=== PATIENT | female | born 1950 | race Caucasian/White ===

== ENCOUNTER → 2017-08-02 09:36 | Outpatient (CLI) | payer MEDICARE, OTHER, SELFPAY ==
--- NOTE | 2017-08-02 09:36 | DT_ITS ---
This patient was seen during an EMR downtime July 26, 2017 - August 02, 2017. This patient may have a combination of paper and electronic documentation or all paper documentation. All documentation is viewable within the e-chart portion of [facility] for each patient visit.
[2017-08-02 11:14] LABS: Cholesterol 193 mg/dL (200); Glucose 85 mg/dL (74-106); High Density Lipoprotein 42 mg/dL; Thyroid Stim Hormone (TSH) 1.95 uIU/mL (0.358-3.74); Triglycerides 127 mg/dL; Very Low Density Lipoprotein 25 mg/dL (5-40)
== END ==
PROVIDERS: Visit Provider Obstetrics & Gynecology
DX: C54.1 Malignant neoplasm of endometrium (principal); C56.9 Malignant neoplasm of unspecified ovary; Z13.9 Encounter for screening, unspecified
CPT/HCPCS: 36415; 80061; 82947; 84443; 86304

== ENCOUNTER → 2017-08-27 12:44 | Outpatient (CLI) | payer MEDICARE, OTHER, SELFPAY ==
--- NOTE | 2017-08-27 12:46 | BI_ITS ---
MAMMOGRAPHY - BILATERAL SCREENING REASON FOR EXAM: Female, 67 years old. Routine annual screening examination. PERTINENT HISTORY: Non-contributory. TECHNIQUE: Digital bilateral breast ynes (3D mammographic acquisition) in the CC and MLO projections. 2-D mediolateral oblique (MLO) and craniocaudad (CC) views of both breasts were obtained. CAD: Full Field Digital Mammography with Computer Added Detection was performed. COMPARISON: Comparison is made with prior study dated August 20, 2016 and August 19, 2015. FINDINGS: Breast Composition: There are scattered areas of fibroglandular density. There are no dominant masses or suspicious calcifications. No other significant abnormalities are identified. There has been no significant change since the prior study. BI/SCREENING MAMM (CAD), BILAT IMPRESSION: Stable bilateral screening mammogram. Yearly follow-up mammogram recommended. (A) ASSESSMENT CATEGORY: BIRADS Category 1: Negative. A letter regarding these results will be sent to the patient by the facility within 30 days. Approximately 10% of breast cancers are not detected by mammography. A normal mammogram should not delay biopsy of a clinically suspicious abnormality. [id number] Electronically Signed: Dany Riggs MD at 14:21 EDT Tel [phone], Service support ,
== END ==
PROVIDERS: Visit Provider Obstetrics & Gynecology
DX: Z12.31 Encounter for screening mammogram for malignant neoplasm of breast (principal)
CPT/HCPCS: 77063; 77067

== ENCOUNTER → 2018-02-10 09:47 | Outpatient (CLI) | payer MEDICARE, OTHER, SELFPAY ==
[2018-02-11 12:54] LABS: Cancer Antigen 125 18.7 U/mL (0.0-38.1)
== END ==
PROVIDERS: Visit Provider Obstetrics & Gynecology
DX: C54.1 Malignant neoplasm of endometrium (principal); C56.9 Malignant neoplasm of unspecified ovary
CPT/HCPCS: 36415; 86304

== ENCOUNTER → 2018-08-15 | Outpatient (CLI) | payer MEDICARE, OTHER, SELFPAY ==
[2018-08-17 10:45] LABS: Cancer Antigen 125 15.1 U/mL (0.0-38.1)
== END | disposition home or self-care (01) ==
LOC: WOBLAB 10:41
PROVIDERS: Visit Provider Obstetrics & Gynecology
DX: C54.1 Malignant neoplasm of endometrium (principal); C56.9 Malignant neoplasm of unspecified ovary
CPT/HCPCS: 36415; 86304

== ENCOUNTER → 2018-09-05 | Outpatient (CLI) | payer MEDICARE, OTHER, SELFPAY ==
--- NOTE | 2018-09-05 14:22 | BI_ITS ---
MAMMOGRAPHY - BILATERAL SCREENING REASON FOR EXAM: Female, 68 years old. Routine annual screening examination. PERTINENT HISTORY: Non-contributory. TECHNIQUE: Digital bilateral breast huyen (3D mammographic acquisition) in the CC and MLO projections. 2-D mediolateral oblique (MLO) and craniocaudad (CC) views of both breasts were obtained. CAD: Full Field Digital Mammography with Computer Added Detection was performed. COMPARISON: Comparison is made with prior study dated August 27, 2017 and August 20, 2016. FINDINGS: Breast Composition: There are scattered areas of fibroglandular density. There are no dominant masses or suspicious calcifications. No other significant abnormalities are identified. There has been no significant change since the prior study. BI/SCREEN MAMM (CAD) W/HUYEN BILAT IMPRESSION: Stable bilateral screening mammogram. Yearly follow-up mammogram recommended. (A) ASSESSMENT CATEGORY: BIRADS Category 1: Negative. A letter regarding these results will be sent to the patient by the facility within 30 days. Approximately 10% of breast cancers are not detected by mammography. A normal mammogram should not delay biopsy of a clinically suspicious abnormality. [id number] Electronically Signed: Dany Riggs, at 15:24 EDT , Service support ,
== END | disposition home or self-care (01) ==
LOC: OPBI 14:20
PROVIDERS: Referring Provider Obstetrics & Gynecology; Visit Provider Obstetrics & Gynecology
DX: Z12.31 Encounter for screening mammogram for malignant neoplasm of breast (principal)
CPT/HCPCS: 77063; 77067

== ENCOUNTER → 2019-02-20 10:23 | Outpatient (CLI) | payer MEDICARE, OTHER, SELFPAY ==
[2019-02-21 15:50] LABS: Cancer Antigen 125 15.1 U/mL (0.0-38.1)
== END ==
PROVIDERS: Visit Provider Obstetrics & Gynecology
DX: C54.1 Malignant neoplasm of endometrium (principal); C56.9 Malignant neoplasm of unspecified ovary
CPT/HCPCS: 36415; 86304

== ENCOUNTER → 2019-09-19 | Outpatient (CLI) | payer MEDICARE, OTHER, SELFPAY ==
[2019-09-20 15:21] LABS: Cancer Antigen 125 15.5 U/mL (0.0-38.1)
== END | disposition home or self-care (01) ==
LOC: WOBLAB 10:21
PROVIDERS: Visit Provider Obstetrics & Gynecology
DX: C54.1 Malignant neoplasm of endometrium (principal)
CPT/HCPCS: 36415; 86304

== ENCOUNTER → 2019-09-20 | Outpatient (CLI) | payer MEDICARE, OTHER, SELFPAY ==
--- NOTE | 2019-09-20 11:58 | BI_ITS ---
MAMMOGRAPHY - BILATERAL SCREENING REASON FOR EXAM: Female, 69 years old. Routine annual screening examination. PERTINENT HISTORY: Non-contributory. TECHNIQUE: Digital bilateral breast huyen (3D mammographic acquisition) in the CC and MLO projections. 2-D mediolateral oblique (MLO) and craniocaudad (CC) views of both breasts were obtained. CAD: Full Field Digital Mammography with Computer Added Detection was performed. COMPARISON: Comparison is made with prior study dated 09/05/2018 and 08/27/2017. FINDINGS: Breast Composition: There are scattered areas of fibroglandular density. There are no dominant masses or suspicious calcifications. Small bilateral benign appearing axillary lymph nodes No other significant abnormalities are identified. There has been no significant change since the prior study. BI/SCREEN MAMM (CAD) W/HUYEN BILAT IMPRESSION: Stable bilateral screening mammogram. Yearly follow-up mammogram recommended. (A) ASSESSMENT CATEGORY: BIRADS Category 2: Benign. A letter regarding these results will be sent to the patient by the facility within 30 days. Approximately 10% of breast cancers are not detected by mammography. A normal mammogram should not delay biopsy of a clinically suspicious abnormality. [id number] Electronically Signed: Dany Riggs, at 13:18 EDT , Service support ,
== END | disposition home or self-care (01) ==
LOC: OPBI 11:55
PROVIDERS: Referring Provider Obstetrics & Gynecology; Visit Provider Obstetrics & Gynecology
DX: Z12.31 Encounter for screening mammogram for malignant neoplasm of breast (principal)
CPT/HCPCS: 77063; 77067

== ENCOUNTER → 2019-10-27 | Outpatient (CLI) | payer MEDICARE, OTHER, SELFPAY ==
[2019-10-27 10:40] VITALS: BMI 38.7
--- NOTE | 2019-10-27 11:42 | RAD_ITS ---
STUDY: X-RAY - RIGHT KNEE REASON FOR EXAM: Female, 69 years old. STIFF KNEE MORE FREQUENTLY, NKI TECHNIQUE: 4 view(s) of the knee. COMPARISON: None. FINDINGS: Normal visualized distal femur. Normal visualized proximal tibia and fibula. Normal proximal tibiofibular articulation. Normal medial femorotibial compartment. Normal lateral femorotibial compartment. Normal patellofemoral articulation. The soft tissue structures are unremarkable. RAD/Knee 4 or More Views IMPRESSION: Normal x-ray examination of the knee. Electronically Signed: Dany Riggs, at 13:09 EDT , Service support ,
[2019-10-27 12:24] LABS: Absolute Neutrophil Count 3.7 X10^3/uL (2.0-7.7); Basophil# 0.03 X10^3/uL; Basophil% 0.5 % (0-1); Eosinophil# 0.15 X10^3/uL; Eosinophils% 2.5 % (0-5); Hematocrit 44.5 % (37-47); Hemoglobin 14.9 g/dL (12.0-15.0); Lymphocyte % 27.1 % (19-41); Mean Corp Hgb Conc 33.5 g/dL (32-36); Mean Corpuscular Hgb 31.7 pg (27.0-32.0); Mean Corpuscular Volume 94.7 fL (81-99); Mean Platelet Vol. 8.9 fl (6.2-12.0); Monocyte% 6.8 % (0-10); NRBC Flagged by Analyzer 0 % (0-5); Neutrophil % 62.8 % (47-70); Platelet Count 272 K/mm3 (150-450); RBC Distribution Width CV 11.9 % (11.6-14.6); RBC Distribution Width SD 41.1 fl (35.1-43.9); White Blood Count 5.9 K/mm3 (4.4-11.0)
[2019-10-27 12:27] LABS: AST(SGOT) 22 U/L (15-37); Alanine Aminotransfer ALT/SGPT 23 U/L (13-56); Alkaline Phosphatase 101 U/L (45-117); Anion Gap 5 (5-15); BUN 22 mg/dL (7-18); BUN/Creat Ratio 22.2 RATIO (10-20); Calcium,Total 9.1 mg/dL (8.5-10.1); Chloride 110 mmol/L (98-107); Cholesterol 235 mg/dL (200); Creatinine, Serum 0.99 mg/dL (0.55-1.02); EST Glomerular Filtration Rate 59 mL/min (>60); Est Glom Filt Rate - Afr Amer 71 mL/min (>60); Glucose 91 mg/dL (74-106); High Density Lipoprotein 45 mg/dL; Potassium 4.5 mmol/L (3.5-5.1); Sodium Level 144 mmol/L (136-145); Triglycerides 101 mg/dL; Very Low Density Lipoprotein 20 mg/dL (5-40)
== END | disposition home or self-care (01) ==
PROVIDERS: PCP Internal Medicine; Referring Provider Internal Medicine; Visit Provider Internal Medicine
DX: M19.90 Unspecified osteoarthritis, unspecified site (principal); M25.561 Pain in right knee; E66.9 Obesity, unspecified
CPT/HCPCS: 36415; 73564; 80053; 80061; 85025

== ENCOUNTER → 2020-10-02 10:44 | Outpatient (CLI) | payer MEDICARE, OTHER, SELFPAY ==
[2019-10-27 10:40] VITALS: BMI 38.7
[2020-10-03 07:50] LABS: Cancer Antigen 125 16.4 U/mL (0.0-38.1)
== END ==
PROVIDERS: PCP Internal Medicine; Visit Provider Obstetrics & Gynecology
DX: C54.1 Malignant neoplasm of endometrium (principal); C56.9 Malignant neoplasm of unspecified ovary
CPT/HCPCS: 36415; 86304

== ENCOUNTER → 2020-10-04 12:27 | Outpatient (CLI) | payer MEDICARE, OTHER, SELFPAY ==
[2019-10-27 10:40] VITALS: BMI 38.7
--- NOTE | 2020-10-04 12:29 | BI_ITS ---
MAMMOGRAPHY - BILATERAL SCREENING REASON FOR EXAM: Female, 70 years old. Routine annual screening examination. PERTINENT HISTORY: Non-contributory. TECHNIQUE: Digital bilateral breast huyen (3D mammographic acquisition) in the CC and MLO projections. 2-D mediolateral oblique (MLO) and craniocaudad (CC) views of both breasts were obtained. CAD: Full Field Digital Mammography with Computer Added Detection was performed. COMPARISON: Comparison is made with prior study of 09/20/2019 and 09/05/2018. FINDINGS: Breast Composition: There are scattered areas of fibroglandular density. There are no dominant masses or suspicious calcifications. No other significant abnormalities are identified. There has been no significant change since the prior study. BI/SCRN MAMM (CAD)W/HUYEN BILAT IMPRESSION: Stable bilateral screening mammogram. Yearly follow-up mammogram recommended. (A) ASSESSMENT CATEGORY: BIRADS Category 1: Negative. A letter regarding these results will be sent to the patient by the facility within 30 days. Approximately 10% of breast cancers are not detected by mammography. A normal mammogram should not delay biopsy of a clinically suspicious abnormality. [id number] Electronically Signed: Dany Riggs MD at 13:36 EDT , Service support ,
== END ==
PROVIDERS: PCP Internal Medicine; Referring Provider Obstetrics & Gynecology; Visit Provider Obstetrics & Gynecology
DX: Z12.31 Encounter for screening mammogram for malignant neoplasm of breast (principal)
CPT/HCPCS: 77063; 77067

== ENCOUNTER 2021-03-17 10:44 | Outpatient (CLI) | payer MEDICARE, OTHER, SELFPAY ==
[2021-03-17 12:45] LABS: ALB/GLOB Ratio 0.9 RATIO (0.9-2.4); AST(SGOT) 21 U/L (15-37); Alanine Aminotransfer ALT/SGPT 25 U/L (13-56); Alkaline Phosphatase 112 U/L (45-117); Anion Gap 6 (5-15); BUN 13 mg/dL (7-18); BUN/Creat Ratio 10.4 RATIO (10-20); Calcium,Total 9.3 mg/dL (8.5-10.1); Chloride 104 mmol/L (98-107); Creatinine, Serum 1.25 mg/dL (0.55-1.02); EST Glomerular Filtration Rate 45 mL/min (>60); Est Glom Filt Rate - Afr Amer 55 mL/min (>60); Globulin 4.6 g/dL (2.2-4.2); Glucose 129 mg/dL (74-106); Potassium 4.7 mmol/L (3.5-5.1); Protein, Total 8.6 g/dL (6.4-8.2); Sodium Level 137 mmol/L (136-145)
[2021-03-17 12:48] LABS: Absolute Lymphocyte Count 1.53 X10^3/uL (0.83-4.51); Absolute Neutrophil Count 11.1 X10^3/uL (2.0-7.7); Basophil# 0.05 X10^3/uL; Basophil% 0.4 % (0-1); Eosinophil# 0.13 X10^3/uL; Eosinophils% 0.9 % (0-5); Hematocrit 49.6 % (37-47); Hemoglobin 16.5 g/dL (12.0-15.0); Lymphocyte # 1.53 X10^3/ul (0.83-4.51); Lymphocyte % 10.9 % (19-41); Mean Corp Hgb Conc 33.3 g/dL (32-36); Mean Corpuscular Hgb 31.3 pg (27.0-32.0); Mean Corpuscular Volume 94.1 fL (81-99); Mean Platelet Vol. 9.2 fl (6.2-12.0); Monocyte# 1.14 X10^3/uL; Monocyte% 8.1 % (0-10); NRBC Flagged by Analyzer 0 % (0-5); Neutrophil # 11.12 X10^3/uL (2.7-7.7); Neutrophil % 79.2 % (47-70); Platelet Count 327 K/mm3 (150-450); RBC Distribution Width SD 41.9 fl (35.1-43.9); Red Blood Count 5.27 M/mm3 (4.2-5.4)
== END 2021-03-17 23:59 | disposition short-term general hospital (02) ==
LOC: BIMLAB 10:45
PROVIDERS: PCP Internal Medicine; Referring Provider Internal Medicine; Visit Provider Internal Medicine
DX: R10.9 Unspecified abdominal pain (principal); R19.4 Change in bowel habit
CPT/HCPCS: 36415; 80053; 85025

== ENCOUNTER 2021-03-18 07:33 | Outpatient (CLI) | payer MEDICARE, OTHER, SELFPAY ==
--- NOTE | 2021-03-18 07:36 | US_ITS ---
STUDY: ABDOMINAL ULTRASOUND REASON FOR EXAM: Female, 70 years old. Abdominal Discomfort TECHNIQUE: Transabdominal ultrasound was performed with real-time and static medellin scale imaging. TECHNICAL QUALITY: Adequate. COMPARISON: None. FINDINGS: Liver: The liver measures 15.9 cm. There is normal echogenicity of the liver. The bile ducts are within normal limits. There is hepatic color flow. The direction of portal flow is hepatopetal. There is no demonstrated mass lesion. Gallbladder: Normal distended gallbladder. The gallbladder wall is thickened and measures 6.4 mm. There is a negative sonographic Littlejohn''s sign. There is pericholecystic fluid. There are multiple echogenic structures within the gallbladder, consistent with multiple gallstones. Sludge is seen within the gallbladder lumen. Common Bile Duct (C.B.D.): The common bile duct measures 5.8 mm. Pancreas: Normal size of the head, body and tail of the pancreas. There is normal echogenicity of the pancreas. There is no demonstrated pancreatic mass or cyst. Spleen: Normal size of the spleen. The spleen measures 9 cm x 4.8 cm x 3.8 cm. Right Kidney: Normal size of the right kidney. The right kidney measures 10.6 cm x 6.1 cm x 4.2 cm. Normal renal cortex. The right cortex measures 1.0 cm. There is no demonstrated renal mass or cyst. There is no right hydronephrosis. Left Kidney: Normal size of the left kidney. The left kidney measures 10 cm x 5.1 cm x 4.2 cm. Normal renal cortex. The left cortex measures 1.1 cm. There is no demonstrated renal mass or cyst. There is no left hydronephrosis. Aorta: Unremarkable I.V.C.: The IVC is patent. There is no ascites. US/Abdomen Complete IMPRESSION: Multiple gallstones. Thickened gallbladder wall and a small amount of pericholecystic fluid. Electronically Signed: Dany Riggs MD at 9:17 EST , Service support ,
== END 2021-03-18 23:59 | disposition short-term general hospital (02) ==
LOC: US 07:35
PROVIDERS: PCP Internal Medicine; Referring Provider Internal Medicine; Visit Provider Internal Medicine
DX: R10.11 Right upper quadrant pain (principal); R19.4 Change in bowel habit
CPT/HCPCS: 76700

== ENCOUNTER 2021-03-21 08:33 | Day surgery (SDC) | payer MEDICARE, OTHER, SELFPAY ==
--- NOTE | 2021-03-21 08:56 | EKG12_ITS ---
Test Reason : PRE OP Blood Pressure : / mmHG Vent. Rate : 082 BPM Atrial Rate : 082 BPM P-R Int : 150 ms QRS Dur : 076 ms QT Int : 404 ms P-R-T Axes : 034 000 021 degrees QTc Int : 472 ms Sinus rhythm with occasional Premature ventricular complexes Otherwise normal ECG No previous ECGs available Confirmed by BRITTANI ORELLANA, BERNARDA ([id number]), business editor CLAUDIA AGUIRRE ([id number]) on 03/26/2021 8:15:00 AM Referred By: Violeta Kuhn Confirmed By:BERNARDA PETER MD
[2021-03-21 09:02] VITALS: BP 127/69; PULSE 69; RESP 16; TEMP 37.2; O2SAT 99; BMI 38.9
--- NOTE | 2021-03-21 09:09 | PCM.HP.BLA ---
History and Physical Date of Admission: 03/21/21 Date of Service: 03/20/21 MR#:[id number]:[id number]: GUMARO BOWMAN #:[id number]:[id number] Provider:Wayne Campos/Sex: 70/F 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 Required: No Is patient in pain?: No Allergies No Known Allergies Allergy (Verified 03/20/21 08:48) Medications amoxicillin 875 mg-potassium clavulanate 125 mg tablet 1 tab PO Q12H #14 tab 03/17/21 [Rx Confirmed 03/20/21] omeprazole 40 mg capsule,delayed release 40 mg PO DAILY #60 cap 03/17/21 [Rx Confirmed 03/20/21] PFSH Medical History Abdominal discomfort Change in bowel habit History of cancer RUQ pain Surgical History History of appendectomy History of bladder repair surgery History of colonoscopy History of hysterectomy Family History Father Cancer brain Mother Diabetes Arthritis CVA (cerebral vascular accident) Social History Smoking Status: Never smoker alcohol intake: current alcohol intake frequency: holidays/special occasions only Alcohol type: wine substance use type: does not use what type of physical activity do you participate in: other details: house work and gardening HPI HPI HPI: GUMARO BOWMAN, is a 70 F who presents to the office today for gallstones/right upper quadrant pain. Patient states she has had multiple episodes of attacks where happen early in the morning typically last about 2 hours. Patient states also she noticed in her 40s she was unable to eat really greasy foods due to abdominal pain. Patient first had attack March 07 again last about 2 hours of nausea right upper quadrant/epigastric pain. Patient also had an attack last Wednesday which was 6 to 8 hours started about 2 AM did have some back and shoulder pain with it as well. Patient states walking helped and having bowel movement also helped which was normal. Patient did have sauces/mac & cheese Wednesday night. Patient saw her PCP on 03/17 at that time her white blood cell count was 14 she was given Augmentin per PCP for 1 week. Patient had an ultrasound done on 03/18 which showed a thickened gallbladder wall pericholecystic fluid, normal common bile duct. Patient currently denies any pain. Patient has been able to eat small meals along with some protein drinks and also drink liquids yesterday. Patient states on Wednesday she usually only able to drink liquids but that has been getting better. Patient does states she does have a high pain tolerance. ROS General General: Yes fatigue; No weight change, appetite, colon cancer or breast cancer HEENT HEENT: No difficulty swallowing, eye injury, eye surgery, swollen glands or hoarseness Endo Endocrine: No thyroid disease, diabetes mellitus, thyroid cancer, Hair loss, heat intolerance or cold intolerance Skin Skin: No rash or changing moles Musc Musculoskeletal: No back problems, arthritis, rheumatoid arthritis, gout or joint pain Cardio Cardiovascular: No murmur, pacemaker, heart disease, atrial fibrillation, high blood pressure, heart attack, heart stent, palpitations, shortness of breat with exertion or chest pain Psych Psychiatric: No depression, anxiety or hearing voices Resp Respiratory: No shortness of breath, No sleep apnea, No cough, No COPD, No asthma, No emphysema and No wheezing Gastro Gastrointestinal: No abdominal pain, No nausea or vomiting, No diarrhea, No constipation, No blood in stool, No acid reflux, No hemorrhoids, No ulcers, Yes gallbladder problem and No black,tarry stools Keith Hematologic: No blood thinners, No blood disorders, No bleeding, No anemia and No blood clots Neuro Neurologic: No abnormal speech and No confusion Exam Const General: cooperative, healthy appearing, comfortable and no acute distress Neck Neck: normal visual inspection Resp Effort & Inspection: normal respiratory effort Cardio Rate: regular rate GI Inspection: non-distended Palpation: soft, no guarding and tender in the epigastrum and in the RUQ; Littlejohn's sign negative and with no rebound tenderness Skin General: no rashes or lesions noted Neuro General: patient oriented x3 Psych Affect: normal affect COVID (Procedure Consent) Procedure Criteria Procedure Criteria: Yes Elective The surgeon/proceduralist and patient have discussed in detail the risk of exposure to and/or potential harm posed by the COVID-19 virus with having a surgery/procedure at this time versus the risk of delaying the surgery/procedure. It is not possible to know either the risk of delaying the surgery or procedure or chance of getting an infection with perfect accuracy, but a joint decision was made between the patient and the surgeon/proceduralist to proceed at this time with the scheduled surgery/procedure as indicated on the consent form. Assessment and Plan Assessment and Plan (1) Acute cholecystitis due to biliary calculus: Status: Acute (2) RUQ pain: Status: Acute Plan - Dr. Violeta Kuhn MD: We will schedule for laparoscopic cholecystectomy tomorrow. Reviewed the anatomy with the patient and discussed the procedure: laparoscopic cholecystectomy with possible cholangiograms, possible open. Review risks including but not limited to bleeding, infection, hernia, bile leak, retained gallstones requiring another procedure ERCP- Endoscopic Retrograde Cholangiopancreatography, injury to another organ (bile ducts, common bile duct, small bowel, etc.) may require transfer to tertiary care facility and conversion to an open procedure or during a subtotal cholecystectomy if there is too much inflammation to safely dissect out the cystic duct/artery. All questions were answered. Violeta Kuhn M.D. Pager: [phone] [facility] [address] [place] [address], [address] [place] [address] Office: [phone] Coding Level of Care Code Off vis,new,level 3 Diagnoses Acute cholecystitis due to biliary calculus K80.00 RUQ pain R10.11 03/20/21 0913<Electronically signed by Violeat Kuhn MD>Date Violeta Kuhn MD
[2021-03-21] MEDS: Lactated Ringers 1,000 ML 30 ML IV (09:21)
--- NOTE | 2021-03-21 10:10 | GALL_PTH ---
PATIENT: GUMARO BOWMAN LOC: [facility] [place] U#:[id number] AGE/SX: 70/F ROOM: RE03/21/[address]: Dr. Violeta Kuhn MD : 1950 BED: DIS: 03/21/2021 SPEC #: [id number] RECD: 03/21/21 12:17 STATUS: BRITTANY GLAI #: [id number] LINDA: 03/21/21 10:[address]: Violeta Kuhn DEPT: SURGICAL PATHOLOGY RECD BY: Nicky Baugh ENTERED: 03/21/21 12:22 SP TYPE: ERA JUNE DR: Dr. Mary Lou Hamilton MD Tissues: Gallbladder, NOS Procedures: Surgery Specimen Level III HEADER OPERATION: Laparoscopic cholecystectomy with IOC PRE-OP DIAGNOSIS: Acute cholecystitis due to biliary calculus, RUQ pain TISSUE SUBMITTED: Gallbladder MICROSCOPIC DIAGNOSIS Gallbladder, cholecystectomy: Acute and chronic cholecystitis and cholelithiasis. AM:abdiaziz 03/24/2021 MICROSCOPIC DESCRIPTION Slides are reviewed. GROSS DESCRIPTION Received is one container labeled with the patient's name and designated gallbladder. The specimen consists of a previously opened gallbladder measuring 10 cm in length and 4 cm in diameter. The external surface is pink-terrell, smooth and glistening for the most part. Focally it is granular, hemorrhagic and contains cautery artifact. The gallbladder contains hemorrhagic fluid. Present in the gallbladder and also in the container are multiple, multifaceted, greenish-black stones measuring in aggregate 4 x 4 x 1 cm and 0.1 to 1.2 cm in greatest dimension. The mucosa is congested and hemorrhagic. The gallbladder wall measures up to 0.5 cm in thickness. Pallet Stone Inserter sections from the gallbladder and the cystic duct are submitted in one cassette. / SJ:abdiaziz 03/21/2021 TC:2 CPT: 30994
--- NOTE | 2021-03-21 10:10 | RAD_ITS ---
STUDY: INTRAOPERATIVE CHOLANGIOGRAM. REASON FOR EXAM: Female, 70 years old. Laparoscopic cholecystectomy. FLUOROSCOPY TIME (if supplied): ( 17.2 seconds ) minutes/seconds. A cine loop of 118 images was submitted. TECHNIQUE: An intraoperative cholangiogram was performed by the surgeon. Imaging was submitted. COMPARISON: None. FINDINGS: There is evidence of gallstones. The common bile duct is unremarkable. No intraluminal filling defect is seen. There is free flow of contrast into the duodenum. The intrahepatic biliary ducts are unremarkable. RAD/Cholangiogram/ O R,Initial IMPRESSION: Unremarkable intraoperative cholangiogram. Electronically Signed: Dany Riggs MD at 15:02 EST ,
[2021-03-21] MEDS: Lactated Ringers 1,000 ML 100 ML IV (11:30)
[2021-03-21] MEDS: Bupivacaine Mpf 0.5% 30 ML VIAL (11:53)
--- NOTE | 2021-03-21 11:54 | OP.PCM_ITS ---
Report of Operation Date of Procedure: 03/21/21 Pre-Operative Diagnosis: Acute cholecystitis, gallstones Post-Operative Diagnosis: Same Surgery/Procedure Performed:: Laparoscopic cholecystectomy with cholangiograms Surgeon: Violeta Kuhn mammalogy teacher: Claire Keys Type of Anesthesia: General/Supplemental Anesthesiologist: Derek Villasenor Special Medications: Ancef 2 g IV x1 Specimen's removed: Gallbladder and stones Description of Procedure: Indications this is a 70 year-old female who developed abdominal pain/nausea/vomiting and on workup was found to have acute cholecystitis, cholelithiasis, with a normal common bile duct. Laparoscopic cholecystectomy was elected. Description procedure: The patient was placed on operating table in supine position. General Anesthesia was induced. A timeout was completed verifying correct patient, procedure, site, position and special equipment prior to beginning procedure. The abdomen was prepped and draped in usual sterile fashion. An incision was made in the natural skin line above the umbilicus. The fascia was elevated and incised. The peritoneum was elevated and incised. Entry into the peritoneum was confirmed visually and no bowel was noted in the vicinity of the incision. Butterfield trocar was placed. The abdomen was insufflated with carbon dioxide to a pressure of 12-15 mmHg. Patient tolerated insufflation well. The laparoscope was then inserted and abdomen inspected. No injuries from initial trocar placement were noted. Additional trochars were then inserted in the following locations 5 mm trocar in the epigastrium and 2 more 5 mm trochars along the right costal margin. The abdomen was inspected no abnormalities were found. The table is placed in reverse Trendelenburg position with the right side up. The adhesions between the gallbladder and omentum were lysed sharply. The aspiration needle was used as the gallbladder was tense and inflamed. The dome of the gallbladder was grasped with atraumatic grasper passed through the lateral port and retracted over the dome of the liver. Infundibulum was then grasped with atraumatic grasper through the midclavicular port and retracted to the right lower quadrant. This maneuver exposed Calot's triangle. The peritoneum overlying the gallbladder infundibulum was then incised and cystic duct and artery identified and circumferentially dissected. Gallardo catheter was used for cholangiograms. The cholangiogram showed good filling of the common bile duct into the duodenum with no filling defects, good filling of the right and left bile ducts as well. The cystic duct and artery were then doubly clipped and divided close to the gallbladder. The gallbladder then dissected from its peritoneal attachments by electrocautery. Hemostasis was checked and the gallbladder and contained stones were removed using the endoscopic retrieval bag through the umbilical port. The gallbladder is passed off table as specimen. The gallbladder fossa was copiously irrigated with saline and hemostasis obtained. There is no evidence of bleeding from the gallbladder fossa or cystic artery leakage of bile from the cystic duct stump. Secondary trochars removed under direct vision. No bleeding was noted the trocar sites. The laparoscope was withdrawn and umbilical trocar removed. The abdomen was allowed to collapse. The fascia of the 12 mm trocar was closed with 2 [id number] 0 Vicryl suture as it had to be enlarged a little to allow for removal of the gallbladder/stones. The skin was closed with sutures of 4-0 Monocryl and Steri-Strips. The orogastric tube was removed and the patient was extubated. The patient tolerated procedure well and was taken to the postanesthesia care unit in stable condition. Complications None
--- NOTE | 2021-03-21 11:56 | EX.PCM.DISCH ---
Discharge Instructions Diet Discharge Diet: Light diet - advance as tolerated Activity Discharge Activity: May Not Drive (while taking narcotic pain medications.) May shower in (days): 1 Lifting Restrictions: no lifting >20 lbs x 2 wks, no strenuous exercise for 4 wks Dressing / Incision Call your doctor if your incision/area has: Continuous Slow Oozing, Sudden Increased Bleeding, Increased Pain/ Swelling, Increased Redness, Foul Smelling Discharge and Swelling at the incision site Call your doctor if you observe: Fever of 101 or Higher Remove Dressing in: 2 days Cleanse incision/area with: Soap & Water Additional Dressing/Incision Instructions:: Steri-Strips will fall off in 7 to 10 days, if they do not fall off okay to remove after 10 days. Follow Up Care Please Follow Up With: Violeta Kuhn MD When: Call the office for a follow-up appointment 2 weeks; after 5 PM and on the weekends call [phone] with any concerns. Test Results: Test results from this visit will be discussed in further detail at your follow-up appointment, if applicable. Discharge Plan Admission Attending Provider: Violeta Kuhn Primary Care Provider: Mary Lou Hamilton Discharge Orders/Prescriptions Prescriptions: New oxycodone-acetaminophen 5-325 mg tablet 1 tab PO Q6H PRN (Reason: pain) 3 Days Qty: 10 RF: 0 Continued omeprazole 40 mg capsule,delayed release(DR/EC) 40 mg PO DAILY Qty: 60 RF: 1 Discontinued amoxicillin-pot clavulanate 875-125 mg tablet 1 tab PO Q12H Qty: 14 RF: 0 Referrals / Follow Up: Mary Lou Hamilton MD [Primary Care Provider] - Disposition Disposition (needs filled in before D/C Order can be placed): Home, Self Care
[2021-03-21 12:06] VITALS: BP 115/73; BP 127/69; PULSE 68; RESP 16; TEMP 36.3; O2SAT 94
[2021-03-21 12:12] VITALS: BP 127/69; BP 134/79; PULSE 76; RESP 16; O2SAT 95
[2021-03-21 12:30] VITALS: BP 127/69; BP 140/83; PULSE 70; RESP 16; O2SAT 98
[2021-03-21 12:41] VITALS: BP 127/69; BP 133/81; PULSE 68; RESP 16; TEMP 36.6; O2SAT 96
[2021-03-21 14:00] VITALS: BP 127/69; BP 142/76; PULSE 75; RESP 16; TEMP 36.7; O2SAT 95
== END 2021-03-21 23:59 | disposition home or self-care (01) ==
LOC: SDC 08:39 → AC 08:40
PROVIDERS: PCP Internal Medicine; Referring Provider Surgery; Visit Provider Surgery
PROC: (CPT 47610; principal; 2021-03-21 09:55)
DX: K80.12 Calculus of gallbladder with acute and chronic cholecystitis without obstruction (principal); K66.0 Peritoneal adhesions (postprocedural) (postinfection); M19.90 Unspecified osteoarthritis, unspecified site; Z90.49 Acquired absence of other specified parts of digestive tract; Z90.710 Acquired absence of both cervix and uterus
CPT/HCPCS: 47563; 74300; 76000; 88304; 93005; J7120; J2405

== ENCOUNTER → 2021-08-11 | Outpatient (CLI) | payer MEDICARE, OTHER, SELFPAY ==
[2021-08-11 12:48] LABS: Absolute Lymphocyte Count 1.63 X10^3/uL (0.83-4.51); Absolute Neutrophil Count 3.7 X10^3/uL (2.0-7.7); Basophil# 0.04 X10^3/uL; Basophil% 0.7 % (0-1); Eosinophil# 0.17 X10^3/uL; Eosinophils% 2.8 % (0-5); Hematocrit 42.7 % (37-47); Hemoglobin 14.2 g/dL (12.0-15.0); Lymphocyte # 1.63 X10^3/ul (0.83-4.51); Lymphocyte % 27.1 % (19-41); Mean Corp Hgb Conc 33.3 g/dL (32-36); Mean Corpuscular Hgb 31.6 pg (27.0-32.0); Mean Corpuscular Volume 95.1 fL (81-99); Mean Platelet Vol. 9.2 fl (6.2-12.0); Monocyte# 0.43 X10^3/uL; Monocyte% 7.2 % (0-10); NRBC Flagged by Analyzer 0 % (0-5); Neutrophil # 3.72 X10^3/uL (2.7-7.7); Neutrophil % 61.9 % (47-70); Platelet Count 265 K/mm3 (150-450); RBC Distribution Width CV 11.8 % (11.6-14.6); RBC Distribution Width SD 41.1 fl (35.1-43.9); Red Blood Count 4.49 M/mm3 (4.2-5.4)
[2021-08-11 13:57] LABS: AST(SGOT) 21 U/L (15-37); Alanine Aminotransfer ALT/SGPT 23 U/L (13-56); Albumin, Serum 3.7 g/dL (3.2-5.0); Alkaline Phosphatase 89 U/L (45-117); Anion Gap 5 (5-15); BUN 22 mg/dL (7-18); BUN/Creat Ratio 24.1 RATIO (10-20); Calcium,Total 9.2 mg/dL (8.5-10.1); Chloride 111 mmol/L (98-107); Cholesterol 174 mg/dL (200); Creatinine, Serum 0.91 mg/dL (0.55-1.02); EST Glomerular Filtration Rate 65 mL/min (>60); Est Glom Filt Rate - Afr Amer 78 mL/min (>60); Globulin 3.8 g/dL (2.2-4.2); Glucose 86 mg/dL (74-106); High Density Lipoprotein 46 mg/dL; Potassium 4.6 mmol/L (3.5-5.1); Protein, Total 7.5 g/dL (6.4-8.2); Sodium Level 143 mmol/L (136-145); Triglycerides 119 mg/dL; Very Low Density Lipoprotein 24 mg/dL (5-40)
== END | disposition home or self-care (01) ==
LOC: BIMLAB 10:24
PROVIDERS: PCP Internal Medicine; Referring Provider Internal Medicine; Visit Provider Internal Medicine
DX: E78.5 Hyperlipidemia, unspecified (principal)
CPT/HCPCS: 36415; 80053; 80061; 85025

== ENCOUNTER → 2021-09-10 | Outpatient (CLI) | payer MEDICARE, OTHER, SELFPAY ==
--- NOTE | 2021-09-10 08:32 | BD_ITS ---
STUDY: DUAL ENERGY X-RAY ABSORPTIOMETRY / DXA REASON FOR EXAM: Female, 71 years old. Post Menopausal TECHNIQUE: Bone Mineral Density (BMD) measurements of lumbar spine and bilateral hips were obtained. COMPARISON: None. FINDINGS: Lumbar Spine (L1-L4): g/cm2 (0.868) / T-score (-1.0) / Z-score (1.0) Findings are suggestive of normal bone density with a low fracture risk. Left Femur Total: g/cm2 (0.856) / T-score (-0.7) / Z-score (0.8) Left Femoral Neck: g/cm2 (0.807) / T-score (-0.4) / Z-score (1.4) Right Femur Total: g/cm2 (0.807) / T-score (-1.1) / Z-score (0.4) Right Femoral Neck: g/cm2 (0.749) / T-score (-0.9) / Z-score (0.9) BD/Dexa Bone Density Study IMPRESSION: The patient is considered osteopenic as outlined below according to World Brady Organization (WHO) criteria with a low fracture risk. Reference Information: The T-score is the number of standard deviations above or below the standard which is normal for young adults at their peak bone mineral density. The World Health Organization (WHO) interprets the T-scores as follows: Above -1 Normal bone density Between -1 and -2.5 Osteopenia Equal to / or below -2.5 Osteoporosis As a practical clinical guideline, osteopenia may be graded as follows: Mild -1 through -1.5 Moderate -1.6 through -2.0 Severe -2.1 through -2.4 The Z-score is the number of standard deviations above or below age-matched controls. A Z-score of less than -1.5 would be considered abnormal. References: 1. NIH Osteoporosis and Related Bone Diseases www osteo.org 2. International Society for Clinical Densitometry www iscd.org 3. National Osteoporosis Foundation www nof.org Electronically Signed: Dany Riggs MD at 14:16 EDT ,
== END | disposition home or self-care (01) ==
LOC: OPBD 08:26
PROVIDERS: PCP Internal Medicine; Visit Provider Internal Medicine
DX: M85.80 Other specified disorders of bone density and structure, unspecified site (principal); Z78.0 Asymptomatic menopausal state
CPT/HCPCS: 77080

== ENCOUNTER → 2021-10-17 | Outpatient (CLI) | payer MEDICARE, OTHER, SELFPAY ==
[2021-10-18 07:32] LABS: Cancer Antigen 125 15.4 U/mL (0.0-38.1)
== END | disposition home or self-care (01) ==
LOC: WOBLAB 11:45
PROVIDERS: PCP Internal Medicine; Visit Provider Obstetrics & Gynecology
DX: N39.0 Urinary tract infection, site not specified (principal); C56.9 Malignant neoplasm of unspecified ovary
CPT/HCPCS: 86304; 87086

== ENCOUNTER → 2021-10-22 | Outpatient (CLI) | payer MEDICARE, OTHER, SELFPAY ==
--- NOTE | 2021-10-22 08:19 | BI_ITS ---
MAMMOGRAPHY - BILATERAL SCREENING REASON FOR EXAM: Female, 71 years old. Routine annual screening examination. PERTINENT HISTORY: Non-contributory. TECHNIQUE: Digital bilateral breast huyen (3D mammographic acquisition) in the CC and MLO projections. 2-D mediolateral oblique (MLO) and craniocaudad (CC) views of both breasts were obtained. CAD: Full Field Digital Mammography with Computer Added Detection was performed. COMPARISON: Comparison is made with prior study 10/04/2020 and 09/20/2019. FINDINGS: Breast Composition: There are scattered areas of fibroglandular density. There are no dominant masses or suspicious calcifications. No other significant abnormalities are identified. There has been no significant change since the prior study. BI/SCRN MAMM (CAD)W/HUYEN BILAT IMPRESSION: Stable bilateral screening mammogram. Yearly follow-up mammogram recommended. (A) ASSESSMENT CATEGORY: BIRADS Category 1: Negative. A letter regarding these results will be sent to the patient by the facility within 30 days. Approximately 10% of breast cancers are not detected by mammography. A normal mammogram should not delay biopsy of a clinically suspicious abnormality. [id number] Electronically Signed: Dany Riggs MD at 9:04 EDT ,
== END | disposition home or self-care (01) ==
LOC: OPBI 08:16
PROVIDERS: PCP Internal Medicine; Visit Provider Obstetrics & Gynecology
DX: Z12.31 Encounter for screening mammogram for malignant neoplasm of breast (principal)
CPT/HCPCS: 77063; 77067

== ENCOUNTER → 2022-11-24 | Outpatient (CLI) | payer MEDICARE, OTHER, SELFPAY ==
[2022-11-24 12:11] LABS: Absolute Lymphocyte Count 1.22 X10^3/uL (0.83-4.51); Absolute Neutrophil Count 4.3 X10^3/uL (2.0-7.7); Basophil# 0.06 X10^3/uL; Eosinophil# 0.21 X10^3/uL; Eosinophils% 3.3 % (0-5); Hematocrit 41.4 % (37-47); Hemoglobin 13.6 g/dL (12.0-15.0); Lymphocyte # 1.22 X10^3/ul (0.83-4.51); Lymphocyte % 19.4 % (19-41); Mean Corp Hgb Conc 32.9 g/dL (32-36); Mean Corpuscular Hgb 31.8 pg (27.0-32.0); Mean Corpuscular Volume 96.7 fL (81-99); Monocyte# 0.46 X10^3/uL; Monocyte% 7.3 % (0-10); NRBC Flagged by Analyzer 0 % (0-5); Neutrophil # 4.25 X10^3/uL (2.7-7.7); Neutrophil % 67.4 % (47-70); Platelet Count 240 K/mm3 (150-450); RBC Distribution Width CV 12.1 % (11.6-14.6); RBC Distribution Width SD 43.2 fl (35.1-43.9); Red Blood Count 4.28 M/mm3 (4.2-5.4); White Blood Count 6.3 K/mm3 (4.4-11.0)
[2022-11-24 12:45] LABS: AST(SGOT) 19 U/L (15-37); Alanine Aminotransfer ALT/SGPT 21 U/L (13-56); Albumin, Serum 3.5 g/dL (3.2-5.0); Alkaline Phosphatase 96 U/L (45-117); Anion Gap 4 (5-15); BUN 19 mg/dL (7-18); Calcium,Total 8.8 mg/dL (8.5-10.1); Chloride 108 mmol/L (98-107); Cholesterol 140 mg/dL (200); Creatinine, Serum 0.83 mg/dL (0.55-1.02); EST Glomerular Filtration Rate 72 mL/min (>60); Est Glom Filt Rate - Afr Amer 87 mL/min (>60); Globulin 3.5 g/dL (2.2-4.2); Glucose 84 mg/dL (74-106); High Density Lipoprotein 35 mg/dL; Potassium 4.6 mmol/L (3.5-5.1); Sodium Level 139 mmol/L (136-145); Triglycerides 157 mg/dL; Very Low Density Lipoprotein 31 mg/dL (5-40)
== END | disposition home or self-care (01) ==
LOC: BIMLAB 08:11
PROVIDERS: PCP Internal Medicine; Visit Provider Internal Medicine
DX: E78.5 Hyperlipidemia, unspecified (principal)
CPT/HCPCS: 36415; 80053; 80061; 85025

== ENCOUNTER → 2022-11-27 | Outpatient (CLI) | payer MEDICARE, OTHER, SELFPAY ==
--- NOTE | 2022-11-27 07:49 | BI_ITS ---
MAMMOGRAPHY - BILATERAL SCREENING REASON FOR EXAM: Female, 72 years old. Routine annual screening examination. PERTINENT HISTORY: Non-contributory. TECHNIQUE: Digital bilateral breast huyen (3D mammographic acquisition) in the CC and MLO projections. 2-D mediolateral oblique (MLO) and craniocaudad (CC) views of both breasts were obtained. CAD: Full Field Digital Mammography with Computer Added Detection was performed. COMPARISON: Comparison is made with prior study dated October 22, 2021 and October 04, 2020. FINDINGS: Breast Composition: The breasts are almost entirely fatty. There are no dominant masses or suspicious calcifications. No other significant abnormalities are identified. There has been no significant change since the prior study. BI/SCRN MAMM (CAD)W/HUYEN BILAT IMPRESSION: Stable bilateral screening mammogram. Yearly follow-up mammogram recommended. (A) ASSESSMENT CATEGORY: BIRADS Category 1: Negative. A letter regarding these results will be sent to the patient by the facility within 30 days. Approximately 10% of breast cancers are not detected by mammography. A normal mammogram should not delay biopsy of a clinically suspicious abnormality. [id number] Electronically Signed: Dany Riggs MD at 10:00 EDT ,
== END | disposition home or self-care (01) ==
LOC: OPBI 07:47
PROVIDERS: PCP Internal Medicine; Referring Provider Internal Medicine; Visit Provider Internal Medicine
DX: Z12.31 Encounter for screening mammogram for malignant neoplasm of breast (principal)
CPT/HCPCS: 77063; 77067

== ENCOUNTER → 2023-11-29 | Outpatient (CLI) | payer MEDICARE, OTHER, SELFPAY ==
[2023-11-29 12:12] LABS: Absolute Lymphocyte Count 1.55 X10^3/uL (0.83-4.51); Absolute Neutrophil Count 5.8 X10^3/uL (2.0-7.7); Basophil# 0.05 X10^3/uL; Basophil% 0.6 % (0-1); Eosinophil# 0.16 X10^3/uL; Hematocrit 44.2 % (37-47); Hemoglobin 14.8 g/dL (12.0-15.0); Lymphocyte # 1.55 X10^3/ul (0.83-4.51); Lymphocyte % 19.4 % (19-41); Mean Corp Hgb Conc 33.5 g/dL (32-36); Mean Corpuscular Hgb 31.6 pg (27.0-32.0); Mean Corpuscular Volume 94.2 fL (81-99); Mean Platelet Vol. 9.5 fl (6.2-12.0); Monocyte# 0.43 X10^3/uL; Monocyte% 5.4 % (0-10); NRBC Flagged by Analyzer 0 % (0-5); Neutrophil # 5.76 X10^3/uL (2.7-7.7); Neutrophil % 72.3 % (47-70); Platelet Count 286 K/mm3 (150-450); RBC Distribution Width CV 11.8 % (11.6-14.6); Red Blood Count 4.69 M/mm3 (4.2-5.4)
[2023-11-29 12:44] LABS: ALB/GLOB Ratio 1.1 RATIO (0.9-2.4); AST(SGOT) 26 U/L (15-37); Alanine Aminotransfer ALT/SGPT 22 U/L (13-56); Albumin, Serum 4.1 g/dL (3.2-5.0); Alkaline Phosphatase 92 U/L (45-117); Anion Gap 6 (5-15); BUN 23 mg/dL (7-18); Calcium,Total 9.9 mg/dL (8.5-10.1); Chloride 108 mmol/L (98-107); Cholesterol 202 mg/dL (200); EST Glomerular Filtration Rate 58 mL/min (>60); Est Glom Filt Rate - Afr Amer 70 mL/min (>60); Globulin 3.8 g/dL (2.2-4.2); Glucose 83 mg/dL (74-106); High Density Lipoprotein 52 mg/dL; Protein, Total 7.9 g/dL (6.4-8.2); Sodium Level 140 mmol/L (136-145); Triglycerides 66 mg/dL; Very Low Density Lipoprotein 13 mg/dL (5-40)
== END | disposition home or self-care (01) ==
LOC: BIMLAB 09:14
PROVIDERS: PCP Internal Medicine; Referring Provider Internal Medicine; Visit Provider Internal Medicine
DX: E78.5 Hyperlipidemia, unspecified (principal)
CPT/HCPCS: 36415; 80053; 80061; 85025

== ENCOUNTER → 2023-12-22 | Outpatient (CLI) | payer MEDICARE, OTHER, SELFPAY ==
--- NOTE | 2023-12-22 14:49 | BI_ITS ---
MAMMOGRAPHY - BILATERAL SCREENING REASON FOR EXAM: Female, 73 years old. Routine annual screening examination. PERTINENT HISTORY: Non-contributory. TECHNIQUE: Digital bilateral breast huyen (3D mammographic acquisition) in the CC and MLO projections. 2-D mediolateral oblique (MLO) and craniocaudad (CC) views of both breasts were obtained. CAD: Full Field Digital Mammography with Computer Added Detection was performed. COMPARISON: Comparison is made with prior study November 27, 2022 and October 22, 2021. FINDINGS: Breast Composition: The breasts are almost entirely fatty. There are no dominant masses or suspicious calcifications. No other significant abnormalities are identified. There has been no significant change since the prior study. BI/SCRN MAMM (CAD)W/HUYEN BILAT IMPRESSION: Stable bilateral screening mammogram. Yearly follow-up mammogram recommended. (A) ASSESSMENT CATEGORY: BIRADS Category 1: Negative. A letter regarding these results will be sent to the patient by the facility within 30 days. Approximately 10% of breast cancers are not detected by mammography. A normal mammogram should not delay biopsy of a clinically suspicious abnormality. [id number] Electronically Signed: Dany Riggs MD at 15:31 EDT ,
--- NOTE | 2023-12-22 14:53 | BD_ITS ---
STUDY: DUAL ENERGY X-RAY ABSORPTIOMETRY / DXA REASON FOR EXAM: Female, 73 years old. Post Menopausal TECHNIQUE: Bone Mineral Density (BMD) measurements of lumbar spine and bilateral hips were obtained. COMPARISON: Comparison is made with prior study September 10, 2021. FINDINGS: Lumbar Spine (L1-L4): g/cm2 (1.005) / T-score (-0.4) / Z-score (1.9) Findings are suggestive of normal bone density with a low fracture risk. Left Femur Total: g/cm2 (0.849) / T-score (-0.8) / Z-score (0.9) Left Femoral Neck: g/cm2 (0.790) / T-score (-0.5) / Z-score (1.4) Right Femur Total: g/cm2 (0.741) / T-score (-1.6) / Z-score (0.0) Right Femoral Neck: g/cm2 (0.725) / T-score (-1.1) / Z-score (0.8) The T-Scores on the most recent prior examination were: Lumbar Spine (L1-L4): There has been improvement of bone density since the previous examination. Left Femur Total: which represents a worsening of 0.8%. Right Femur Total: which represents a worsening of 8.2%. BD/Dexa Bone Density Study IMPRESSION: The patient is considered osteopenic as outlined below according to World Brady Organization (WHO) criteria with a moderate fracture risk. There has been worsening of bone density since the previous examination. Reference Information: The T-score is the number of standard deviations above or below the standard which is normal for young adults at their peak bone mineral density. The World Health Organization (WHO) interprets the T-scores as follows: Above -1 Normal bone density Between -1 and -2.5 Osteopenia Equal to / or below -2.5 Osteoporosis As a practical clinical guideline, osteopenia may be graded as follows: Mild -1 through -1.5 Moderate -1.6 through -2.0 Severe -2.1 through -2.4 The Z-score is the number of standard deviations above or below age-matched controls. A Z-score of less than -1.5 would be considered abnormal. References: 1. NIH Osteoporosis and Related Bone Diseases www osteo.org 2. International Society for Clinical Densitometry www iscd.org 3. National Osteoporosis Foundation www nof.org Electronically Signed: Dany Riggs MD at 12:34 EST ,
--- OUTSIDE RECORDS SUMMARY | 2023-12-22 18:38 | XMS RPT_ITS | CCD ---
Author Organization [facility] Care Team Providers Care Semi Driver Name Role Phone Unavailable Primary Care Provider Unavailabl e Results Test Name Value Interpretation Reference Range Facil ity Otheron 08-14-2010 CONVERTED CLINICAL HISTORY OPERATIVE PROCEDURE: None given CLINICAL INFORMATION: None given [facility] CONVERTED ELECTRONIC SIGNATURE BABS STONE M.D. (Electronic signature on file) Final Signed Out: 08/14/2010 15:25 [facility] CONVERTED FINAL DIAGNOSIS FINAL DIAGNOSIS: A) VAGINAL CYST WALL - SQUAMOUS INCLUSION CYST. B) VAGINAL TISSUE - SQUAMOUS MUCOSA WITH ASSOCIATED SQUAMOUS INCLUSION CYST. SPECIMEN: (A) PELVIS (B) VAGINA [facility] CONVERTED GROSS DESCRIPTION GROSS DESCRIPTION: A. Tissue cyst wall Container A is labeled cyst wall. Received are two portions of thin membranous pink-terrell tissue measuring 4 x 3 x 0.6 cm. One surface is smooth while the other is slightly shaggy, reddish-medellin. Specimen is sectioned and a manufacturing sales representative sample is submitted in a single cassette labeled A. B. Tissue vaginal lining Container B labeled vaginal lining. Received are portions of wrinkled, rubbery, terrell-pink tissue measuring 4 x 4 x 2 cm in aggregate. One surface is smooth, while the other is slightly shaggy. The specimen is sectioned and a manufacturing sales representative sample submitted in a single cassette labeled B. SMS:[facility] MICROSCOPIC DESCRIPTION: Slides reviewed. EAC/lrs [facility] CONVERTED ORDERING PROVIDER Ordering Provider: EFREM RICKS [facility] Otheron 09-06-2009 Converted Case Data Done By: ISHMAEL FERGUSON M.D., PATHOLOGIST [facility] CONVERTED CLINICAL HISTORY OPERATIVE PROCEDURE: Exploratory staging laparotomy, cyto washings, removal of large pelvic mass, total abdominal hysterectomy, bilateral salpingo-oophorectomy , tumor reductive surgery, possible cystocele, rectocele, enterocele repairs, possible vaginal vault suspension CLINICAL INFORMATION: Complex pelvic mass, uterine prolapse, post menopausal bleeding [facility] CONVERTED ELECTRONIC SIGNATURE ISHMAEL FERGUSON M.D., PATHOLOGIST (Electronic signature on file) Final Signed Out: 09/06/2009 08:40 [facility] CONVERTED FINAL DIAGNOSIS FINAL DIAGNOSIS: A) OVARY AND FALLOPIAN TUBE, RIGHT, SALPINGO-OOPHORECTOMY - 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 FALLOPIAN TUBE SHOWING NO PATHOLOGIC ABNORMALITIES. SEE COMMENT. B) ILEAL MESENTERY, BIOPSY #1 - NEGATIVE FOR MALIGNANCY. C) ILEAL MESENTERY, BIOPSY #2 - CHRONIC INFLAMMATION. NEGATIVE FOR MALIGNANCY. D) DISTAL OMENTUM, EXCISION - NO PATHOLOGIC ABNORMALITIES. 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 SEE COMMENT. MYOMETRIUM - NO PATHOLOGIC ABNORMALITIES. LEFT OVARY - BENIGN KRISTEN TUMOR. LEFT FALLOPIAN TUBE - NO PATHOLOGIC ABNORMALITIES. F) LYMPH NODE, PROXIMAL PERIAORTIC, EXCISION - BENIGN LYMPH NODE. G) LYMPH NODE, DISTAL PERIAORTIC, EXCISION - BENIGN LYMPH NODE. COMMENT: The endometrial adenocarcinoma is well differentiated and there is no definite evidence of invasion. The lower uterine segment resection stump is negative for malignancy. According to the AJCC Cancer Staging Manual (7th Edition) the pathologic stage of the endometrial carcinoma is pT1a(FIGO IA) pN0. SPECIMEN: (A) OVARY AND TUBE, RIGHT (B) MESENTERY (C) MESENTERY (D) OMENTUM (E) UTERUS, LT TUBE & OVARY (F) LYMPH NODE (G) LYMPH NODE [facility] CONVERTED GROSS DESCRIPTION GROSS DESCRIPTION: A. Right tube and ovary - FS Received in a container labeled right tube and ovary. Received is an enlarged intact ovary weighing 2,987 gm and measuring 25 x 18 x 12.5 cm. The surface is smooth to wrinkled, grayish-terrell. Attached is an unremarkable appearing fallopian tube measuring 6 x 1 cm. On cut section, the cyst is filled with brown, slightly mucoid material. The lining is shaggy, brown. There is an area of papillary excrescence measuring 12 x 8 cm. Stylist Apprentice sample of the ovary submitted for frozen section. Stylist Apprentice sample of the ovary/cyst submitted in cassettes 1-19; sample of fallopian tube submitted in cassette 20. B. Biopsy of ileum mesentery #1 Received in a container labeled biopsy of ileum mesentery #1. Received is a portion of soft red-yellow tissue measuring 0.3 cm in diameter. Specimen totally submitted in cassette B. C. Biopsy of ileum mesentery #2 Received in a container labeled biopsy of ileum mesentery #2. Received is a portion of soft yellow tissue measuring 0.3 cm in diameter. Specimen totally submitted in cassette C. D. Distal omentum Received in a container labeled distal omentum. Received is a segment of omentum measuring 15 x 4 x 0.2 cm. Sections and palpation of the omentum reveal no discrete or suspicious lesion. Stylist Apprentice sample submitted in four cassettes labeled D. E. Uterus, left tube and ovary Received in a container labeled uterus, left tube and ovary. Received is a supracervical hysterectomy specimen with attached left tube and ovary. The uterus weighs 119 gm and measures 9 x 7 x 6 cm. The serosal surface is smooth, terrell-pink. The specimen is bivalved and endometrial cavity measures 5 x 3 cm. The endometrium is irregular, red-terrell with several gelatinous red-terrell polyps, the largest measuring 2 cm in length. The remaining endometrium is yellowish-red and measures up to 0.5 cm. On cut section the myometrium is muscular terrell-pink and measures up to 3 cm. The left ovary is enlarged, intact, firm, pink-yellow weighing 45 gm and measuring 6 x 6 x 6 cm. On cut section the ovary is solid, gritty yellowish-white. The fallopian tube with fimbriated end measures 7 x 0.5 cm. No abnormalities are noted. Sections are as follows: 1-2 endometrial polyp; 3-6 endomyometrium; 7-11 left ovary; 12 left fallopian tube; 13-14 lower uterine stump resection margin. F. Proximal periaortic Received in a container labeled proximal periaortic lymph node. Received is a smooth, pink-terrell portion of tissue measuring 1 x 0.5 x 0.5 cm. Specimen is bisected and submitted in cassette F. G. Distal periaortic Received in a container labeled distal periaortic lymph node. Received is a soft, pink-terrell lymph node measuring 1.5 x 1 x 0.5 cm. The specimen is sectioned and submitted in cassette G. SMS:EDS:[facility] MICROSCOPIC DESCRIPTION: Slides reviewed. EDS/gpl [facility] CONVERTED INTRAOP DIAGNOSIS INTRAOPERATIVE CONSULTATION: Frozen Section Diagnosis A: Right tube and ovary - At least borderline serous tumor. EDS [facility] ORDERING PROVIDER Ordering Provider: ISHMAEL BA [facility] Otheron 09-05-2009 CONVERTED CLINICAL HISTORY CLINICAL INFORMATION [facility] CONVERTED ELECTRONIC SIGNATURE BABS STONE M.D. (Electronic signature on file) Final Signed Out: 09/05/2009 14:49 [facility] CONVERTED FINAL DIAGNOSIS DIAGNOSIS RIGHT SUB-DIAPHRAGMATIC SCRAPING - NO MALIGNANT CELLS IDENTIFIED. REACTIVE MESOTHELIAL CELLS. [facility] CONVERTED GROSS DESCRIPTION SPECIMEN: A) SDC, SUB-DIAPHRAGM SCRAPINGS [place] diaphragmatic scraping,right Description: Materials Prepared & Examined: Other: ............. 1 slide received. # of Smear slides: ......... 1 # of Slides: ................. 1 [facility] CONVERTED ORDERING PROVIDER Ordering Provider: ISHMAEL BA [facility] CONVERTED PROCEDURE PROCEDURE: [facility] CLINICAL HISTORY [facility] INFORMATION [facility] CONVERTED ELECTRONIC SIGNATURE BABS STONE M.D. (Electronic signature on file) Final Signed Out: 09/05/2009 14:48 [facility] CONVERTED FINAL DIAGNOSIS DIAGNOSIS LEFT SUB-DIAPHRAGMATIC SCRAPING - NO MALIGNANT CELLS IDENTIFIED. REACTIVE MESOTHELIAL CELLS. [facility] CONVERTED GROSS DESCRIPTION SPECIMEN: A) SDC, SUB-DIAPHRAGM SCRAPINGS [place]-diaphragmatic scraping , left. Description: Materials Prepared & Examined: Other: ............. 1 slide recived. # of Smear slides: ......... 1 # of Slides: ................. 1 [facility] ORDERING PROVIDER Ordering Provider: ISHMAEL BA [facility]URE [facility] H[facility]ORY [facility] INFORMATION [facility] CONVERTED ELECTRONIC SIGNATURE ISHMAEL FERGUSON M.D., PATHOLOGIST (Electronic signature on file) Final Signed Out: 09/04/2009 11:56 [facility] CONVERTED FINAL DIAGNOSIS DIAGNOSIS PELVIC WASHING - NO MALIGNANT CELLS IDENTIFIED. REACTIVE MESOTHELIAL CELLS. [facility] CONVERTED GROSS DESCRIPTION SPECIMEN: A) PEC, PELVIC WASHING W/CELL BLOCK Peritoneal washing. Description: Materials Prepared & Examined: Volume: ......... 50 # of Cell Blocks: .......... 1 Color: ............ Red # of Monolayers: .......... 1 Consistency: ...... clotted # of Smear slides: ......... 1 # of Slides: ................. 4 [facility] CONVERTED ORDERING PROVIDER Ordering Provider: ISHMAEL BA [facility] CONVERTED PROCEDURE PROCEDURE: [facility] Encounters Encounter Date Encounter Type Care Provider Facility Start: 08-11-2010 End: 08-11-2010 Patient encounter procedure Efrem Ricks Work Phone: [facility] Start: 08-11-2010 Results Only Efrem hamlin Work Phone: [facility] Start: 09-03-2009 End: 09-03-2009 Patient encounter procedure Ishmael Ba Work Phone: [facility] Start: 09-03-2009 Results Only Ishmael Ledesma on Work Phone: [facility] Procedures Date Procedure Procedure Detail Performing Clinician Start: 08-11-2010 CONVERTED SURGICAL PATHOLOGY Efrem Ricks Work Phone: Start: 09-03-2009 CONVERTED CYTOLOGY NON-PIPER HELPER Ishmael Ba Work Phone: Start: 09-03-2009 CONVERTED SURGICAL PATHOLOGY Ishmael Ba Work Phone: Social History Date Type Detail Facility Tobacco smoking status NHIS Unknown if ev er smoked [facility] Sex Assigned At Not on file [facility] Additional Source Comments Source Comments (unrecognize d section and content) In the event this informatio n is protected by the Federal Confidentiality of Alcohol and Drug Abuse Patient Records regulations: The Federal rules restrict any use of the information to criminally investigate or prosecute any alcohol or drug abuse patient.[facility] FOR RECORDS PERTAINING TO PATIENTS WHO ARE OR HAVE BEEN ENROLLED IN A CHEMICAL DEPENDENCY/SUBSTANCEABUSE PROGRAM, SOME INFORMATION MAY BE OMITTED. This clinical summary was aggregated from multiple sources. Caution should be exercised in using it in the provision of clinical care. This summary normalizes information from multiple sources, and as a consequence, information in this document may materially change the coding, format and clinical context of patient data. In addition, data may be omitted in some cases. CLINICAL DECISIONS SHOULD BE BASED ON THE PRIMARY CLINICAL RECORDS. [facility] [employer] [facility]. provides no warranty or guarantee of the accuracy or completeness of information in this document.
== END | disposition home or self-care (01) ==
LOC: OPBD 14:49
PROVIDERS: PCP Internal Medicine; Referring Provider Internal Medicine; Visit Provider Internal Medicine
DX: Z12.31 Encounter for screening mammogram for malignant neoplasm of breast (principal); Z78.0 Asymptomatic menopausal state
CPT/HCPCS: 77063; 77067; 77080

== ENCOUNTER → 2024-03-01 | Outpatient (CLI) | payer MEDICARE, OTHER, SELFPAY ==
[2024-03-01 12:27] LABS: Anion Gap 2 (5-15); BUN 18 mg/dL (7-18); BUN/Creat Ratio 20.5 RATIO (10-20); Calcium,Total 9.5 mg/dL (8.5-10.1); Chloride 110 mmol/L (98-107); Creatinine, Serum 0.88 mg/dL (0.55-1.02); EST Glomerular Filtration Rate 67 mL/min (>60); Est Glom Filt Rate - Afr Amer 81 mL/min (>60); Glucose 93 mg/dL (74-106); Sodium Level 142 mmol/L (136-145)
== END | disposition home or self-care (01) ==
LOC: BIMLAB 09:06
PROVIDERS: PCP Internal Medicine; Referring Provider Internal Medicine; Visit Provider Internal Medicine
DX: R94.4 Abnormal results of kidney function studies (principal)
CPT/HCPCS: 36415; 80048

== ENCOUNTER → 2024-04-24 | Outpatient (CLI) | payer MEDICARE, OTHER, SELFPAY ==
[2024-04-27 14:08] LABS: HPV APTIMA, High Risk Negative (Negative)
== END | disposition home or self-care (01) ==
LOC: LABSPEC 16:06
PROVIDERS: PCP Internal Medicine; Visit Provider Nurse Practitioner Family
DX: C54.1 Malignant neoplasm of endometrium (principal); Z90.710 Acquired absence of both cervix and uterus; Z12.4 Encounter for screening for malignant neoplasm of cervix
CPT/HCPCS: 87624; 88175; G0145

== ENCOUNTER → 2024-04-25 | Outpatient (CLI) | payer MEDICARE, OTHER, SELFPAY ==
[2024-04-26 08:09] LABS: Cancer Antigen 125 12.8 U/mL (0.0-38.1)
== END | disposition home or self-care (01) ==
LOC: LAB 10:46
PROVIDERS: PCP Internal Medicine; Referring Provider Nurse Practitioner Family; Visit Provider Nurse Practitioner Family
DX: C54.1 Malignant neoplasm of endometrium (principal)
CPT/HCPCS: 36415; 86304

== ENCOUNTER → 2024-12-27 | Outpatient (CLI) | payer MEDICARE, OTHER, SELFPAY ==
[2024-12-27 10:10] LABS: Hematocrit 43.6 % (37-47); Hemoglobin 14.8 g/dL (12.0-15.0); Immature Granulocytes Count 0.020 X10^3/uL (0.0-0.0); Mean Corp Hgb Conc 33.9 g/dL (32-36); Mean Corpuscular Volume 92.4 fL (81-99); Mean Platelet Vol. 8.8 fl (6.2-12.0); NRBC Flagged by Analyzer 0 % (0-5); Platelet Count 262 K/mm3 (150-450); RBC Distribution Width CV 11.9 % (11.6-14.6); RBC Distribution Width SD 40.8 fl (35.1-43.9); Red Blood Count 4.72 M/mm3 (4.2-5.4); White Blood Count 6.5 K/mm3 (4.4-11.0)
[2024-12-27 11:19] LABS: AST(SGOT) 25 U/L (<=31); Alanine Aminotransfer ALT/SGPT 18 U/L (<=34); Albumin, Serum 4.3 g/dL (3.4-4.8); Alkaline Phosphatase 86 U/L (35-104); Anion Gap 9 (5-15); BUN 23 mg/dL (4-19); BUN/Creat Ratio 30.6 RATIO (10-20); Calcium,Total 9.3 mg/dL (7.6-11.0); Carbon Dioxide 26.4 mmol/L (21.0-32.0); Chloride 106 mmol/L (98-108); Cholesterol 205 mg/dL (<=200); Globulin 3.1 g/dL (2.2-4.2); Glucose 80 mg/dL (70-99); Low Density Lipoprotein Calc. 138 mg/dL; Potassium 4.8 mmol/L (3.3-5.1); Triglycerides 103 mg/dL; Very Low Density Lipoprotein 21 mg/dL (5-40); Vitamin D,25 Hydroxy 26.6 ng/mL (30-100); cholesterol:hdl ratio screen 4.25
== END | disposition home or self-care (01) ==
LOC: LAB 08:39
PROVIDERS: PCP Internal Medicine; Referring Provider Internal Medicine; Visit Provider Internal Medicine
DX: E78.5 Hyperlipidemia, unspecified (principal); M85.80 Other specified disorders of bone density and structure, unspecified site
CPT/HCPCS: 36415; 80053; 80061; 82306; 85025

== ENCOUNTER → 2025-01-15 | Outpatient (CLI) | payer MEDICARE, OTHER, SELFPAY ==
--- NOTE | 2025-01-15 15:15 | BI_ITS ---
EXAM: SCRN MAMM (CAD)W/HUYEN BILAT DATE: 01/15/2025 CLINICAL HISTORY: F, Age 74 y/o , BREAST CANCER SCREENING TECHNIQUE: Procedure Code: [id number] Modality: MG Procedure: SCRN MAMM (CAD)W/HUYEN BILAT COMPARISON: Prior exam(s) were compared FINDINGS: TISSUE DENSITY: The breasts are heterogeneously dense, which may obscure small masses. Bilateral Breast Mammographic Findings: No significant masses, calcifications or other abnormalities are identified. BI/SCRN MAMM (CAD)W/HUYEN BILAT IMPRESSION: No mammographic evidence of malignancy in either breast. OVERALL FINAL ASSESSMENT BI-RADS 1: NEGATIVE. RECOMMENDATION: Routine annual follow-up in 1 Year Additional Recommendation none A letter with findings and recommendations will be mailed to the patient. Reading Location: [id number]
== END | disposition home or self-care (01) ==
LOC: OPBI 15:07
PROVIDERS: PCP Internal Medicine; Referring Provider Internal Medicine; Visit Provider Internal Medicine
DX: Z12.31 Encounter for screening mammogram for malignant neoplasm of breast (principal)
CPT/HCPCS: 77063; 77067

== ENCOUNTER → 2025-01-29 | Outpatient (CLI) | payer MEDICARE, OTHER, SELFPAY ==
--- NOTE | 2025-01-29 07:45 | ECHOD_ITS ---
Reason For Study Reason For Study: MURMUR Procedure This was a 2D Doppler, Color Flow transthoracic echocardiogram. The patient is in sinus rhythm. Exam performed in department. Left Ventricle Normal-sized left ventricle. Normal left ventricular wall thickness. Left ventricular EF by Ramesh's biplane: 57%. Normal diastolic function. E/e' suggest normal filling pressures. No regional wall motion abnormalities noted. Right Ventricle Normal right ventricle. Normal systolic function. Unable to estimate RV systolic pressure due to insufficient tricuspid regurgitant envelope. Atria The left and right atria are normal. Estimated right atrial pressure: 3 mmHg. Normal atrial septum. Mitral Valve Normal mitral valve. Trace mitral regurgitation. No mitral stenosis. Tricuspid Valve Normal tricuspid valve. Trace tricuspid regurgitation. No tricuspid stenosis. Aortic Valve Trileaflet aortic valve. Aortic valve cusp thickening. No hemodynamically significant aortic stenosis. No aortic regurgitation. Pulmonic Valve Normal pulmonic valve. Trace pulmonic regurgitation. No pulmonic stenosis. Great Vessels Normal sized aortic root. Normal ascending aorta. Pericardium/Pleural No pericardial effusion. MMode/2D Measurements & Calculations LVIDd: 4.3 cm IVSd: 0.92 cm LVOT diam: 2.0 cm LVIDs: 2.7 cm LVPWd: 0.88 cm LVOT area: 3.1 cm2 RVDd: 2.9 cm FS: 37.9 % Ao root diam: 2.8 cm asc Aorta Diam: 3.4 cm LAV(MOD- bp): 38.4 ml LAV(MOD- bp) Indexed: 20.2 ml/m2 LAV(MOD- sp2): 44.3 ml LAV(MOD- sp4): 34.7 ml SV(MOD- sp4): 43.7 ml LVAd ap4: 25.1 cm2 LVAd ap2: 23.2 cm2 LVLd ap4: 7.6 cm LVLd ap2: 7.5 cm SI(MOD- sp4): 23.0 ml/m2 EDV(MOD-sp4): 69.2 ml EDV(MOD-sp2): 60.6 ml EDV(sp4-el): 70.6 ml EDV(sp2-el): 60.8 ml LVAs ap4: 13.6 cm2 LVAs ap2: 14.1 cm2 LVLs ap4: 6.4 cm LVLs ap2: 6.5 cm ESV(MOD-sp4): 25.5 ml ESV(MOD-sp2): 26.1 ml ESV(sp4-el): 24.4 ml ESV(sp2-el): 26.0 ml EF(MOD-sp4): 63.1 % EF(MOD-sp2): 56.8 % EF(sp4-el): 65.4 % SV(MOD-sp2): 34.4 ml SV(sp4-el): 46.2 ml Ao sinus diam: 2.8 cm SI(MOD-sp2): 18.1 ml/m2 Ao ST Junction: 2.4 cm LA dimension(2D): 3.7 cm LA A4 area: 14.7 cm2 TAPSE: 2.2 cm RA A4 area: 12.2 cm2 Time Measurements MV dec time: 0.28 sec Doppler Measurements & Calculations MV E max monico: 73.9 cm/sec Lat Peak E' Monico: 9.5 cm/sec Med Peak E' Monico: 7.3 cm/sec MV A max monico: 93.9 cm/sec E/E' lat: 7.7 E/E' med: 10.2 MV E/A: 0.79 MV dec slope: 264.1 cm/sec2 Ao V2 max: 133.4 cm/sec LV V1 max: 110.5 cm/sec Ao max P.1 mmHg LV V1 max P.9 mmHg Ao V2 mean: 99.6 cm/sec LV V1 mean P.4 mmHg Ao mean P.3 mmHg LV V1 mean: 70.3 cm/sec Ao V2 VTI: 30.1 cm LV V1 VTI: 22.7 cm AV (velocity ratio): 0.75 BRUNILDA(I,D): 2.4 cm2 BRUNILDA(V,D): 2.6 cm2 SV(LVOT): 71.3 ml PA V2 max: 84.7 cm/sec TR max monico: 225.5 cm/sec TR max P.3 mmHg ECHO/Echo Complete Interpretation Summary Normal left ventricular systolic function with EF by Ramesh's biplane: 57% Normal left ventricular diastolic function Normal left ventricular wall motion Normal right ventricular systolic function No hemodynamically significant valvular disease Ordering Physician: Mary Lou Hamilton Referring Physician: Mary Lou Hamilton Performed By: Connie Best RDCS
--- OUTSIDE RECORDS SUMMARY | 2025-01-29 08:00 | XMS RPT_ITS | CCD ---
Author Organization [facility] Care Team Providers Care Stacker Name Role Phone Unavailable Primary Care Provider UnavailDr. Mary Lou Suero Primary Care Provider [phone] Dr. Mary Lou Hamilton Attending Provider [phone] Dr. Mary Lou Hamilton Referring Provider [phone] Dr. Mary Lou Hamilton MD Primary Care Provider Alfonso ORELLANA, Dr. Barreto Attending Provider [phone] Dr. Mary Lou Hamilton MD Referring Provider [phone] Skylar Jackson Attending Provider Skylar Jackson Referring Provider Skylar Wilkes Attending Unavailable Oleghe, Efewongbe Primary Care Unavailable Oleghe, Efewongbe Primary Care Unavailable Oleghe, Efewongbe Attending Unavailable Oleghe, Efewongbe Referring Unavailable Oleghe, Efewongbe Attending Unavailable Oleghe, Efewongbe Referring Unavailable Oleghe, Efewongbe Primary Care Unavailable Oleghe, Efewongbe Attending Unavailable Oleghe, Efewongbe Referring Unavailable Oleghe, Efewongbe Primary Care Unavailable Oleghe, Efewongbe Primary Care Unavailable Skylar Wilkes Attending Unavailable Oleghe, Efewongbe Referring Unavailable Oleghe, Efewongbe Attending Unavailable Oleghe, Efewongbe Referring Unavailable Oleghe, Efewongbe Primary Care Unavailable Oleghe, Efewongbe Primary Care Unavailable Skylar Wilkes Attending Unavailable Skylar Wilkes Referring Unavailable Medications Current Medications Medication Drug Class(es) Dates Sig (Normalized) Sig (Original) [facility] (Nk) (2 sources) Start: 11-29-2023 [facility] (Nk) A ctive November 29, 2023 12:00am Completed/Discontinued Medications Medication Drug Class(es) Dates Sig (Normalized) Sig (Original) acetaminophen 325 mg / oxyCODONE hydrochloride 5 mg oral tablet (6 sources) Opioid Agonist Start: 03-21-2021 End: 04-02-2021 Oxycodone-Acetamino phen 5-325 mg tablet Discontinued 1 {tbl} PO EVERY 6 HOURS as needed for pain 10 March 21, 2021 April 02, 2021 12:10pm Start: 03-21-2021 End: 04-02-2021 take 1 tablet by mouth every six hours Oxycodone-Acetaminophen Discontinued 1 TABLET PO EVERY 6 HOURS 10 March 21, 2021 April 02, 2021 12:10pm amoxicillin 875 mg / clavulanate 125 mg oral tablet (6 sources) Penicillin-class Antibacterial Start: 03-17-2021 End: 03-21-2021 Amoxicillin-Pot Clavulanate 875-125 mg tablet Discontinued 1 {tbl} PO Q12H March 17, 2021 1:00am March 21, 2021 12:57pm Start: 03-17-2021 End: 03-21-2021 take 1 tablet by mouth every twelve hours Amoxicillin-Pot Clavulanate Discontinued 1 TABLET PO Q12H March 17, 2021 1:00am March 21, 2021 12:57pm ciprofloxacin 500 mg oral tablet (6 sources) Quinolone Antimicrobial Start: 03-17-2021 End: 03-17-2021 take 1 tablet by mouth every twelve hours Ciprofloxacin Hcl 500 mg tablet Discontinued 500 mg PO Q12H March 17, 2021 1:00am March 17, 2021 3:51pm metroNIDAZOLE 500 mg oral tablet (6 sources) Nitroimidazole Antimicrobial Start: 03-17-2021 End: 03-17-2021 take 1 tablet by mouth three times daily Metronidazole 500 mg tablet Discontinued 500 mg PO THREE TIMES A DAY March 17, 2021 1:00am March 17, 2021 3:51pm omeprazole 40 mg delayed release oral capsule (6 sources) Proton Pump Inhibitor Start: 03-17-2021 End: 08-11-2021 take 1 capsule by mouth once daily Omeprazole 40 mg capsule,delayed release(DR/EC) Discontinued 40 mg PO DAILY 60 March 17, 2021 1:00am August 11, 2021 9:45am Problems Problem Classification Problem Date Documented Da te Episodic/Chronic Abdominal pain (12 sources) Right upper quadrant pain; Translations: [Right upper quadrant pain] 04-08-2021 Episodic Biliary tract disease (6 sources) Acute cholecystitis due to biliary calculus; Translations: [Calculus of gallbladder with acute cholecystitis without obstruction] 04-08-2021 Episodic Cancer of uterus (5 sources) Malignant neoplasm of endometrium of corpus uteri ; Translations: [Malignant neoplasm of endometrium] Onset: 05-05-2024 04-24-2024 Chronic Comment on above: s/p complete hystere ctomy 2009--[facility]. Cancer; other and unspecified primary (6 sources) H/O: malignant neoplasm; Translations: [Personal history of malignant neoplasm, unspecified] 10-27-2019 Episodic Disorders of lipid metabolism (11 sources) Hyperlipidemia; Translations: [Hyperlipidemia, unspecified] Onset: 12-27-2024 Chronic Immunizations and screening for infectious disease (1 source) Encounter for immunization; Translations: [Encounter for immunization] Onset: 12-27-2024 Episodic Other bone disease and musculoskeletal deformities (1 source) Other specified disorders of bone density and structure, unspecified site; Translations: [Other specified disorders of bone density and structure, unspecified site] Onset: 12-27-2024 Episodic Other gastrointestinal disorders (4 sources) Alteration in bowel elimination; Translations: [Change in bowel habit] Episodic Other gastrointestinal disorders (2 sources) Altered bowel function; Translations: [Change in bowel habit] 03-17-2021 Episodic Other non-traumatic joint disorders (6 sources) Pain in right knee; Translations: [Right knee pain] 10-27-2019 Episodic Other nutritional; endocrine; and metabolic disorders (2 sources) Body mass index 30+ - obesity; Translations: [Obesity, unspecified] 11-23-2022 Chronic Other screening for suspected conditions (not mental disorders or infectious disease) (4 sources) Renal function tests abnormal; Translations: [Abnormal results of kidney function studies] Onset: 03-23-2024 11-30-2023 Episodic Residual codes; unclassified (4 sources) Acquired absence of other specified parts of digestive tract; Translations: [Other postprocedural status] Episodic Results Test Name Value Interpretation Reference Range Facility CBC W/Diff, Automatedon 11-0 Absolute Lymph 1.68 X10 3/uL Normal 0.83-4.51 [facility] Comment on above: Performed By: #### L 100.0100, L506.1001, L500.4100, L500.4050 #### [facility] [address] [place], [address] Absolute Neut 4.1 X10 3/uL Normal 2.0-7.7 [facility] Comment on above: Performed By: #### L 100.0100, L506.1001, L500.4100, L500.4050 #### [facility] [address] [place], [address] Basophils/100 WBC (Bld) 0.5 % Normal 0-1 [facility] Comment on above: Performed By: #### L 100.0100, L506.1001, L500.4100, L500.4050 #### [facility] [address] [place], [address] Eosinophils/100 WBC (Bld) 2.8 % Normal 0-5 [facility] Comment on above: Performed By: #### L 100.0100, L506.1001, L500.4100, L500.4050 #### [facility] [address] [place], [address] Erythrocyte distribution width (RBC) [Ratio] 11.9 % Normal 11.6-14.6 [facility] Comment on above: Performed By: #### L 100.0100, L506.1001, L500.4100, L500.4050 #### [facility] [address] [place], [address] Hematocrit (Bld) [Volume fraction] 43.6 % Normal 37-47 [facility] Comment on above: Performed By: #### L 100.0100, L506.1001, L500.4100, L500.4050 #### [facility] [address] [place], [address] Hemoglobin (Bld) [Mass/Vol] 14.8 g/dL Normal 12.0-15.0 [facility] Comment on above: Performed By: #### L 100.0100, L506.1001, L500.4100, L500.4050 #### [facility] [address] [place], [address] IG% 0.300 Normal 0.0-0.9 [facility] Comment on above: Result Comment: IG% - Immature Granulocytes (promyelocytes, myelocytes and metamyelocytes) > 1% indicates that a LEFT SHIFT is Present. Performed By: #### L 100.0100, L506.1001, L500.4100, L500.4050 #### [facility] [address] [place], [address] Lymphocytes/100 WBC (Bld) 25.8 % Normal 19-41 [facility] Comment on above: Performed By: #### L 100.0100, L506.1001, L500.4100, L500.4050 #### [facility] [address] [place], [address] MCH (RBC) [Entitic mass] 31.4 pg Normal 27.0-32.0 [facility] Comment on above: Performed By: #### L 100.0100, L506.1001, L500.4100, L500.4050 #### [facility] [address] [place], [address] MCHC (RBC) [Mass/Vol] 33.9 g/dL Normal 32-36 [facility] Comment on above: Performed By: #### L 100.0100, L506.1001, L500.4100, L500.4050 #### [facility] [address] [place], [address] MCV (RBC) [Entitic vol] 92.4 fL Normal 81-99 [facility] Comment on above: Performed By: #### L 100.0100, L506.1001, L500.4100, L500.4050 #### [facility] [address] [place], [address] Monocytes/100 WBC (Bld) 7.7 % Normal 0-10 [facility] Comment on above: Performed By: #### L 100.0100, L506.1001, L500.4100, L500.4050 #### [facility] [address] [place], [address] Neutrophils/100 WBC (Bld) 62.9 % Normal 47-70 [facility] Comment on above: Performed By: #### L 100.0100, L506.1001, L500.4100, L500.4050 #### [facility] [address] [place], [address] Nucleated RBC (Bld) [#/Vol] 0 10*3/uL Normal 0-5 [facility] Comment on above: Performed By: #### L 100.0100, L506.1001, L500.4100, L500.4050 #### [facility] [address] [place], [address] Platelet mean volume (Bld) [Entitic vol] 8.8 fL Normal 6.2-12.0 [facility] Comment on above: Performed By: #### L 100.0100, L506.1001, L500.4100, L500.4050 #### [facility] [address] [place], [address] Platelets (Bld) [#/Vol] 262 10*3/uL Normal 150-450 [facility] Comment on above: Performed By: #### L 100.0100, L506.1001, L500.4100, L500.4050 #### [facility] [address] [place], [address] RBC (Bld) [#/Vol] 4.72 10*6/uL Normal 4.2-5.4 [facility] Comment on above: Performed By: #### L 100.0100, L506.1001, L500.4100, L500.4050 #### [facility] [address] [place], [address] RDW SD 40.8 fl Normal 35.1-43.9 [facility] Comment on above: Performed By: #### L 100.0100, L506.1001, L500.4100, L500.4050 #### [facility] [address] [place], [address] WBC (Bld) [#/Vol] 6.5 10*3/uL Normal 4.4-11.0 [facility] Comment on above: Performed By: #### L 100.0100, L506.1001, L500.4100, L500.4050 #### [facility] [address] [place], [address] Comprehensive Metabolic Prof [facility] 12-27-2024 Albumin [Mass/Vol] 4.3 g/dL Normal 3.4-4.8 [facility] Comment on above: Performed By: #### L 100.0100, L506.1001, L500.4100, L500.4050 #### [facility] [address] [place], [address] Albumin/Globulin [Mass ratio] 1.4 {ratio} Normal 0.9-2.4 [facility] Comment on above: Performed By: #### L 100.0100, L506.1001, L500.4100, L500.4050 #### [facility] [address] [place], [address] ALK PHOS 86 U/L Normal 35-104 [facility] Comment on above: Performed By: #### L 100.0100, L506.1001, L500.4100, L500.4050 #### [facility] [address] [place], [address] ALT [Catalytic activity/Vol] 18 U/L Normal <=34 [facility] Comment on above: Performed By: #### L 100.0100, L506.1001, L500.4100, L500.4050 #### [facility] [address] [place], [address] AST [Catalytic activity/Vol] 25 U/L Normal <=31 [facility] Comment on above: Performed By: #### L 100.0100, L506.1001, L500.4100, L500.4050 #### [facility] [address] [place], [address] Bilirubin [Mass/Vol] 0.42 mg/dL Normal 0.00-1.30 [facility] Comment on above: Performed By: #### L 100.0100, L506.1001, L500.4100, L500.4050 #### [facility] [address] [place], [address] BUN/CRE 30.6 RATIO High 10-20 [facility] Comment on above: Performed By: #### L 100.0100, L506.1001, L500.4100, L500.4050 #### [facility] [address] [place], [address] Calcium [Mass/Vol] 9.3 mg/dL Normal 7.6-11.0 [facility] Comment on above: Performed By: #### L 100.0100, L506.1001, L500.4100, L500.4050 #### [facility] [address] [place], [address] Chloride [Moles/Vol] 106 mmol/L Normal 98-108 [facility] Comment on above: Performed By: #### L 100.0100, L506.1001, L500.4100, L500.4050 #### [facility] [address] [place], [address] CO2 [Moles/Vol] 26.4 mmol/L Normal 21.0-32.0 [facility] Comment on above: Performed By: #### L 100.0100, L506.1001, L500.4100, L500.4050 #### [facility] [address] [place], [address] Creatinine [Mass/Vol] 0.76 mg/dL Normal 0.70-1.20 [facility] Comment on above: Performed By: #### L 100.0100, L506.1001, L500.4100, L500.4050 #### [facility] [address] [place], [address] GAP 9 Normal 5-15 [facility] Comment on above: Performed By: #### L 100.0100, L506.1001, L500.4100, L500.4050 #### [facility] [address] [place], [address] GFR/1.73 sq M.predicted among non-blacks MDRD (S/P/Bld) [Vol rate/Area] 82 mL/min/{1.73_m2} Normal >60 [facility] Comment on above: Result Comment: mL/m in/1.73m2 CKD-EPI Creatinine Equation (2020) Performed By: #### L 100.0100, L506.1001, L500.4100, L500.4050 #### [facility] [address] [place], [address] Globulin (S) [Mass/Vol] 3.1 g/dL Normal 2.2-4.2 [facility] Comment on above: Performed By: #### L 100.0100, L506.1001, L500.4100, L500.4050 #### [facility] [address] [place], [address] Glucose [Mass/Vol] 80 mg/dL Normal 70-99 [facility] Comment on above: Performed By: #### L 100.0100, L506.1001, L500.4100, L500.4050 #### [facility] [address] [place], [address] Potassium [Moles/Vol] 4.8 mmol/L Normal 3.3-5.1 [facility] Comment on above: Performed By: #### L 100.0100, L506.1001, L500.4100, L500.4050 #### [facility] [address] [place], [address] Sodium [Moles/Vol] 142 mmol/L Normal 133-145 [facility] Comment on above: Performed By: #### L 100.0100, L506.1001, L500.4100, L500.4050 #### [facility] [address] [place], [address] T PROT 7.4 g/dL Normal 5.9-8.4 [facility] Comment on above: Performed By: #### L 100.0100, L506.1001, L500.4100, L500.4050 #### [facility] [address] [place], [address] Urea nitrogen [Mass/Vol] 23 mg/dL High 4-19 [facility] Comment on above: Performed By: #### L 100.0100, L506.1001, L500.4100, L500.4050 #### [facility] [place], [address] Internal Medicine Office Vis iton 12-27-2024 Internal Medicine Office Visit [facility] [address] [place] [address] [place] [address] OFFICE VISIT Date of Service: 12/27/24 MR#: [id number] Acct: [id number] Name: GUMARO BOWMAN Rep #: [id number] : 1950 Provider: Dr. Mary Lou ponce MD Age/Sex: 74/F Location: [facility] Status: Signed Intake Vital Signs 04/24/24 10:09 12/27/24 07:41 Height 5 ft 3 in 5 ft 3 in Weight: 192 lb BMI 34.0 BP 114/72 Blood Pressure Location Lt brachial Position Sitting Respiration 14 Pulse 72 Pulse Source Monitor Temp 97.5 F L Temp Source Temporal Pulse Oximetry (%) 96 Oxygen Delivery Method room air Intake Visit Reasons: yearly check up Chief Complaint: Yearly visit/follow-up chronic conditions Wafer Mounter Required: No Is patient in pain?: No Allergies No Known Allergies Allergy (Verified 12/27/24 07:25) Medications ???Medication ???Instructions ???Recorded ???Confirmed ???Type NK 11/29/23 12/27/24 History Have you fallen in the past year?: No PFSH Medical History (Updated 12/27/24 @ 08:[address] Mary Lou Hamilton MD) Heart murmur Osteopenia Abnormal renal function test Obesity (BMI 30-39.9) Health care maintenance Hyperlipidemia Wears glasses Cancer Arthritis Non-smoker RUQ pain Change in bowel habit Abdominal discomfort History of cancer Surgical History S/P laparoscopic cholecystectomy History of colonoscopy History of bladder repair surgery History of hysterectomy History of appendectomy Family History (Updated 12/27/24 @ 07:38 by Sophia Coughlin MA) Father Brain cancer Mother Arthritis CVA (cerebral vascular accident) Type 2 diabetes mellitus Social History (Updated 12/27/24 @ 07:40 by Sophia Coughlin MA) adopted: No household members: spouse housing: house number of children: 3 current occupational status: employed 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 - Gordy RIZVI HPI Chief Complaint: Yearly visit/follow-up chronic conditions Details: GUMARO BOWMAN, is a 74-year-old female with a heart murmur and moderate fracture risk presenting for a wellness visit. The patient reports doing well with no new concerns. She denies shortness of breath, lower extremity swelling, syncopal or near syncopal episodes. There have been no significant changes since her last visit. She reports good sleep and is trying to stay active using a walking treadmill, though her exercise routine has been limited by the summer heat. She takes a multivitamin in the morning and a separate calcium supplement at noon. She is unsure of her current vitamin D dosage. 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 Had a mammogram in November 2023, and a bone density scan at the same time. She had a dermatology visit at [facility] about a year ago with no concerning findings and was advised to follow up in 1 year. Her Cologuard was negative last year, with the next due in 2026. She received the COVID vaccine a few years ago and her last pneumonia vaccine was in 2018. She is interested in receiving the flu and pneumonia vaccines today. ROS Const Constitutional: No body ache, chills, excessive sweating, fatigue, fever(s), frequent falls, headache(s), snoring, weakness, sleep problems or change in appetite Eyes Eyes: No blurry vision, change in vision, eye pain or Light sensitivity ENT ENT: No abnormal hearing, ear or mastoid pain, tinnitus, nasal congestion, headache(s), neck pain or sore throat Resp Respiratory: No cough, shortness of breath, snoring or wheezing Cardio Cardiology: No chest pain at rest, chest pain with exertion, excessive sweating, shortness of breath, dyspnea on exertion, lightheadedness, orthopnea or palpitations Gastro GI: No abdominal pain, change in bowel habits, constipation, cramping, diarrhea, nausea/dyspepsia or vomiting Genitourinary-Female: No burning urination, painful urination, urinary incontinence, urinary frequency, abnormal vaginal bleeding or pelvic pain Musc Musculoskeletal: No abnormal gait, joint pain, back pain, limited range of motion, neck pain or numbness Skin Skin: No dry skin, redness, lesions, itchy eyes, rash (more content not included)... Normal [facility] Lipid Profileon 12-27-2024 CHOL:HDL 4.25 Normal [facility] Comment on above: Performed By: #### L 100.0100, L506.1001, L500.4100, L500.4050 #### [facility] [address] [place], [place], [id number] Cholesterol [Mass/Vol] 205 mg/dL High <=200 [facility] Comment on above: Result Comment: Chol esterol level, Desirable <200 mg/dL Borderline high cholesterol 200-239 mg/dL High cholesterol >=240 mg/dL Recommendations of the NCEP Adult Treatment Panel for the following risk-cutoff thresholds for the [place] population. Performed By: #### L 100.0100, L506.1001, L500.4100, L500.4050 #### [facility] [address] [place], [place], [id number] Cholesterol in HDL [Mass/Vol] 48 mg/dL Normal [facility] Comment on above: Result Comment: [place]va onal Cholesterol Education Program (NCEP) guidelines: <40 mg/dL: Low HDL-cholesterol (major risk factor for CHD) >= 60 mg/dL: High HDL-cholesterol (negative risk factor for CHD) HDL-cholesterol is affected by a number of factors, e.g. smoking, exercise, hormones, sex and age. Performed By: #### L 100.0100, L506.1001, L500.4100, L500.4050 #### [facility] [address] [place], [address] Cholesterol in LDL [Mass/Vol] 138 mg/dL Normal [facility] Comment on above: Result Comment: Bord smmxoi=301-069 mg/dL Higher Nwsx=494 mg/dL or greater Riddle Equation 2020 for LDL-C Performed By: #### L 100.0100, L506.1001, L500.4100, L500.4050 #### [facility] [address] [place], [address] Cholesterol in VLDL [Mass/Vol] 21 mg/dL Normal 5-40 [facility] Comment on above: Performed By: #### L 100.0100, L506.1001, L500.4100, L500.4050 #### [facility] [address] [place], [address] Triglyceride [Mass/Vol] 103 mg/dL Normal [facility] Comment on above: Result Comment: The drugs N-Acetylcysteine and Metamizole may falsely depress this assay. Normal range: <150 mg/dL Borderline High: 150-199 mg/dL High: 200-499 mg/dL Very High: >500 mg/dL Performed By: #### L 100.0100, L506.1001, L500.4100, L500.4050 #### [facility] [address] [place], [address] Vitamin D,25 Hydroxyon 12-27 Vitamin D 25-OH 26.6 ng/mL Low 30-100 [facility] Comment on above: Result Comment: Millie min D Status Deficiency: <20 ng/mL (50nmol/L) Insufficiency: 20-30 ng/mL (50-75 nmol/L) Sufficiency: 30-100 ng/mL (75-250 nmol/L) Toxicity: >100 ng/mL (>250 nmol/L) Performed By: #### L 100.0100, L506.1001, L500.4100, L500.4050 #### [facility] [address] [place], [address] PAP IG HPV APTIMA 16/18,45on 04-27-2024 ADEQ Comment Normal . [facility] Comment on above: Order Comment: Speci men Comment: [id number] Specimen Comment: Source.............Cervix Specimen Comment: LMP / Prev Treat...Hyst Specimen Comment: No. of containers..01 ThinPrep Vial Result Comment: Sati sfactory for evaluation. No endocervical cells are present. This is consistent with a history of hysterectomy. Performed By: #### L 7400.0280 #### [facility] [address] [place], [place], [id number] COMM . Normal . [facility] Comment on above: Order Comment: Speci men Comment: [id number] Specimen Comment: Source.............Cervix Specimen Comment: LMP / Prev Treat...Hyst Specimen Comment: No. of containers..01 ThinPrep Vial Performed By: #### L 7400.0280 #### [facility] [address] [place], [address] COMMENT Comment Normal . [facility] Comment on above: Order Comment: Speci men Comment: [id number] Specimen Comment: Source.............Cervix Specimen Comment: LMP / Prev Treat...Hyst Specimen Comment: No. of containers..01 ThinPrep Vial Result Comment: This liquid based ThinPrep(R) pap test was screened with the use of an image guided system. Performed By: #### L 7400.0280 #### [facility] [address] [place], [place], [address] DIAG Comment Normal . [facility] Comment on above: Order Comment: Speci men Comment: [id number] Specimen Comment: Source.............Cervix Specimen Comment: LMP / Prev Treat...Hyst Specimen Comment: No. of containers..01 ThinPrep Vial Result Comment: NEGA TIVE FOR INTRAEPITHELIAL LESION OR MALIGNANCY. CELLULAR CHANGES ASSOCIATED WITH ATROPHY ARE PRESENT. Performed By: #### L 7400.0280 #### [facility] [address] [place], [place], [id number] HPV APTIMA, HR Negative Normal Negative [facility] Comment on above: Order Comment: Speci men Comment: [id number] Specimen Comment: Source.............Cervix Specimen Comment: LMP / Prev Treat...Hyst Specimen Comment: No. of containers..01 ThinPrep Vial Result Comment: This nucleic acid amplification test detects fourteen high- risk HPV types (16,18,31,33,35,39,45,51,52,56,58,59,66,68) without differentiation. Performed By: #### L 7400.0280 #### [facility] [address] [place], [address] HPV Sravani Rfx Comment Normal . [facility] Comment on above: Order Comment: Speci men Comment: [id number] Specimen Comment: Source.............Cervix Specimen Comment: LMP / Prev Treat...Hyst Specimen Comment: No. of containers..01 ThinPrep Vial Result Comment: Crit eria not met, HPV Genotype not performed. Performed at: - [address] [id number] Dental Office Receptionist: Lynn Garduno MD, Phone: [phone] Performed at: = - [address] [id number] Dental Office Receptionist: Lynn Garduno MD, Phone: [phone] Performed By: #### L 7400.0280 #### [facility] [address] [place], [address] PAPSMR Comment Normal . [facility] Comment on above: Order Comment: Speci men Comment: [id number] Specimen Comment: Source.............Cervix Specimen Comment: LMP / Prev Treat...Hyst Specimen Comment: No. of containers..01 ThinPrep Vial Result Comment: The Pap smear is a screening test designed to aid in the detection of premalignant and malignant conditions of the uterine cervix. It is not a diagnostic procedure and should not be used as the sole means of detecting cervical cancer. Both false-positive and false-negative reports do occur. Performed By: #### L 7400.0280 #### [facility] [address] [place], [address] PERFORM Comment Normal . [facility] Comment on above: Order Comment: Speci men Comment: [id number] Specimen Comment: Source.............Cervix Specimen Comment: LMP / Prev Treat...Hyst Specimen Comment: No. of containers..01 ThinPrep Vial Result Comment: Sonia Farley, Turn Down Attendant (ASCP) Performed By: #### L 7400.0280 #### [facility] [address] [place], [address] Cancer Antigen 125on 025 CA 125 12.8 U/mL Normal 0.0-38.1 [facility] Comment on above: Result Comment: [facility] Electrochemiluminescence Immunoassay (ECLIA) Values obtained with different assay methods or kits cannot be used interchangeably. Results cannot be interpreted as absolute evidence of the presence or absence of malignant disease. Performed at: [address] [id number] Dental Office Receptionist: Pool Sousa PhD, Phone: [phone] Performed By: #### L 2355.9184 #### [facility] [address] [place], [address] Cancer antigen 125 (CA-125) measurementOrdered By: Skylar Wilkes on 04-25-2024 CA 125 Antigen 12.8 U/mL 0.0-38.1 [facility] Comment on above: [facility] El ectrochemiluminescence Immunoassay(ECLIA)Values obtained with different assay methods or kits cannotbe used interchangeably. Results cannot be interpreted asabsolute evidence of the presence or absence of malignantdisease.Performed at: - [address] [id number] Director: Pool Sousa PhD, Phone: [phone] Licensed Veterinary Technician Cyto stain Nom (C vx/Vag) [ID]Ordered By: Skylar Wilkes on 04-24-2024 Pap Smear Performed By Comment . [facility] Comment on above: Geoff stafford, Turn Down Attendant (ASCP) Cytology report Cyto stain D oc (Cvx/Vag)Ordered By: Skylar Wilkes on 04-24-2024 Thin Prep Pap Smear Comment . [facility] Comment on above: The Pap smear is a s creening test designed to aid in thedetection of premalignant and malignant conditions of theuterine cervix. It is not a diagnostic procedure andshould not be used as the sole means of detecting cervicalcancer. Both false-positive and false-negative reports dooccur. Cytology report Cyto stain.t hin prep Doc (Cvx/Vag)Ordered By: Skylar Wilkes on 04-24-2024 HPV Genotype Special Info Comment . [facility] Comment on above: Criteria not met, HP V Genotype not performed.Performed at: - [address] [id number] Director: Lynn Garduno MD, Phone: [phone] at: =[address] [id number] Director: Lynn Garduno MD, Phone: [phone] HPV 16+18+31+33+35+39+45+51+ 52+56+58+59+66+68 DNA Probe+sig amp Ql (Cvx)Ordered By: Skylar Wilkes on 04-24-2024 Human Papillomavirus High Risk Negative Negative [facility] Comment on above: This nucleic acid am plification test detects fourteen high- risk HPV types (16,18,31,33,35,39,45,51,52,56,58,59,66,68)without differentiation. Image-guided ThinPrep PapOrd ered By: Skylar Wilkes on 04-24-2024 Pap Smear Note Comment . [facility] Comment on above: This liquid based Th inPrep(R) pap test was screened withthe use of an image guided system. Image-guided liquid-based Pa pOrdered By: Skylar Wilkes on 04-24-2024 Pap Smear Diagnosis Comment . [facility] Comment on above: NEGATIVE FOR INTRAEP ITHELIAL LESION OR MALIGNANCY.CELLULAR CHANGES ASSOCIATED WITH ATROPHY ARE PRESENT. Commander Internal Affairs Office Visit Reporton 04-24-2024 Commander Internal Affairs Office Visit Report [facility] [address] [place] [address], [address] [place] [address] OFFICE VISIT Date of Service: 04/24/24 MR#: [id number] Acct: [id number] Name: GUMARO BOWMAN Lana Rep #: [id number] : 1950 Provider: ARTURO Ulloa Age/Sex: 73/F Location: [facility] Status: Signed Intake Vital Signs 11/29/23 08:52 04/24/24 10:07 04/24/24 10:09 Height 5 ft 3 in 5 ft 3 in 5 ft 3 in Weight: 182 lb 193 lb BMI 32.2 34.2 BP 118/72 132/78 H Blood Pressure Location Lt brachial Position Sitting Respiration 16 Pulse 75 Pulse Source Monitor Temp 97.4 F L Pulse Oximetry (%) 99 Oxygen Delivery Method room air 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 Required: No Is patient in pain?: No Allergies No Known Allergies Allergy (Verified 04/24/24 10:07) Medications ???Medication ???Instructions ???Recorded ???Confirmed ???Type NK 11/29/23 04/24/24 History [facility]: [facility] History Abnormal renal function test Obesity (BMI 30-39.9) Health care maintenance Hyperlipidemia Wears glasses Cancer Arthritis Non-smoker RUQ pain Change in bowel habit Abdominal discomfort History of cancer Surgical History S/P laparoscopic cholecystectomy History of colonoscopy History of bladder repair surgery History of hysterectomy History of appendectomy Family History Father Cancer brain Mother Diabetes Arthritis CVA (cerebral vascular accident) Social History (Updated 04/24/24 @ 10:09 by Ute Madrid) adopted: No household members: spouse housing: house number of children: 3 service: No current occupational status: unemployed pets and animals: No history of recent travel: No sexually active: No Smoking Status: Never smoker alcohol intake: never substance use type: does not use diet: low carbohydrate caffeine: Yes (4) Type: coffee what type of physical activity do you participate in: walking and other details: house work and gardening frequency: 3-4 times per week duration: 15-30 minutes/day shantal/yazidism: Jehovah Witness do you feel safe at home: Yes additional social history: No blood products. - Gordy History 3 Elective abortions Hx Para 3 Spontaneous abortions Hx # Term Pregnancies Ectopic pregnancies Hx # Pregnancies Multiple births # of living children 3 HPI Encounter for routine gynecological examination Details: GUMARO BOWMAN is a 73 year old who presents for annual exam. 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 This was diagnosed in 2009 with complete hysterectomy done at that time. Completed at the [facility]. She was told no further treatment was needed at that time. Since in 2013 she had PAP completed that was normal. She has also had CA 125's routinely monitored. Was told she needed to have routine CA 125's for 15 yrs post diagnosis. She has no other issues or concerns today-would like to establish care. Last PAP: 2013--negative History of abnormal PAP: see HPI Last mammogram: 11/2023 History of abnormal mammogram: none Colon cancer screening: Colonoscopy x 10 years ago-negative. Cologaurd through PCP this year. Other preventative health care screenings: Primary Care Doctor: Dr. Hamilton. Female Reproductive History Associated symptoms: s/p hyst Questions: metorrhagia: No, sexually active: No, dyspareunia: No and PCB: No ROS Const Constitutional: Denies chills, fatigue, fever(s), headache(s) or weight loss Eyes Eyes: Denies change in vision ENT ENT: Denies dizziness Resp Resp: Denies cough GI GI: Denies abdominal pain, constipation or nausea : Denies difficulty voiding, dysuria, hematuria, nipple discharge, pelvic pain, prolapse symptoms, urinary incontinence, vaginal discharge, vaginal dryness, vaginal odor or vaginal pruritus Skin Skin/Breast: Denies alopecia, rash, breast mass, breast pain, breast skin changes or nipple discharge Neuro Neuro: Denies dizziness Psych Psych: Denies anxiety or depression Endo Endo: Denies cold intolerance, excessive sweating or heat intolerance Exam Const General: cooperative, healthy appearing, comfortable, no acute distress, well groomed and well hydrated Nutritional Appearance: well nourished Orientation: alert, awake and oriented x3 HENMT Head: normal to inspection and normocephalic Ears: hearing grossly normal bilaterally and external ears normal Nose: external nose normal Face and sinus: normal facial exam Eyes General: appearance normal, both eyes and all related structures Neck (more content not included)... Normal [facility] Service comment (Unsp spec) [Interp]Ordered By: Skylar Wilkes on 04-24-2024 Pap Smear Comment (3) . . [facility] Basic Metabolic Profile (BMP )on 03-01-2024 BUN/CRE 20.5 RATIO High 10-20 [facility] Comment on above: Performed By: #### L 500.2500 #### [facility] [address] [facility] [place], [address] CA,Total 9.5 mg/dL Normal 8.5-10.1 [facility] Comment on above: Performed By: #### L 500.2500 #### [facility] [address] [place], [address] Chloride [Moles/Vol] 110 mmol/L High 98-107 [facility] Comment on above: Performed By: #### L 500.2500 #### [facility] [address] [place], [address] CO2 [Moles/Vol] 30.0 mmol/L Normal 21.0-32.0 [facility] Comment on above: Performed By: #### L 500.2500 #### [facility] [address] [place], [address] Creatinine [Mass/Vol] 0.88 mg/dL Normal 0.55-1.02 [facility] Comment on above: Result Comment: The validity of the calculated GFR GFRAA in patients over 70 years has not been determined. Clinical correlation is essential. Performed By: #### L 500.2500 #### [facility] [address] [place], [address] EST GFR - AA 81 mL/min Normal >60 [facility] Comment on above: Result Comment: Afri can [place] GFR Calc Performed By: #### L 500.2500 #### [facility] [address] [place], [address] GAP 2 Low 5-15 [facility] Comment on above: Performed By: #### L 500.2500 #### [facility] [address] [place], [address] GFR/1.73 sq M.predicted among non-blacks MDRD (S/P/Bld) [Vol rate/Area] 67 mL/min/{1.73_m2} Normal >60 [facility] Comment on above: Result Comment: Non- GFR Calc Performed By: #### L 500.2500 #### [facility] [address] [place], [address] Glucose [Mass/Vol] 93 mg/dL Normal 74-106 [facility] Comment on above: Performed By: #### L 500.2500 #### [facility] [address] [place], [address] Potassium [Moles/Vol] 5.0 mmol/L Normal 3.5-5.1 [facility] Comment on above: Performed By: #### L 500.2500 #### [facility] [address] [place], [address] Sodium [Moles/Vol] 142 mmol/L Normal 136-145 [facility] Comment on above: Performed By: #### L 500.2500 #### [facility] [address] [place], [place], [address] Urea nitrogen [Mass/Vol] 18 mg/dL Normal 7-18 [facility] Comment on above: Performed By: #### L 500.2500 #### [facility] [address] [place], [address] Blood urea nitrogen (BUN)/cr eatinine ratioOrdered By: Mary Lou Hamilton on 03-01-2024 Urea nitrogen/Creatinine [Mass ratio] 20.5 mg/mg High 10-20 [facility] Carbon dioxide measurementOr dered By: Mary Lou Hamilton on 03-01-2024 CO2 [Moles/Vol] 30.0 mmol/L 21.0-32.0 [facility] Chloride measurementOrdered By: Mary Lou Hamilton on 03-01-2024 Chloride [Moles/Vol] 110 mmol/L High 98-107 [facility] Estimated glomerular filtrat ion rate (GFR) AmericanOrdered By: Mary Lou Hamilton on 03-01-2024 Estimated GFR (MDRD) Amer 81 mL/min >60 [facility] Comment on above: GFR Calc Glomerular filtration rate ( GFR) estimationOrdered By: Mary Lou Hamilton on 03-01-2024 Estimated GFR (MDRD) Non-Af Amer 67 mL/min >60 [facility] Comment on above: Non- GFR Calc Glucose measurementOrdered B y: Mary Lou Hamilton on 03-01-2024 Glucose [Mass/Vol] 93 mg/dL 74-106 [facility] Potassium measurementOrdered By: Mary Lou Hamilton on 03-01-2024 Potassium [Moles/Vol] 5.0 mmol/L 3.5-5.1 [facility] Serum anion gap measurementO rdered By: Mary Lou Hamilton on 03-01-2024 Anion gap [Moles/Vol] 2 mmol/L Low 5-15 [facility] Serum or plasma calcium kana urement (mass/volume)Ordered By: Mary Lou Hamilton on 03-01-2024 Calcium [Mass/Vol] 9.5 mg/dL 8.5-10.1 [facility] Serum or plasma creatinine m easurement (mass/volume)Ordered By: Mary Lou Hamilton on 03-01-2024 Creatinine [Mass/Vol] 0.88 mg/dL 0.55-1.02 [facility] Comment on above: The validity of the calculated GFR & GFRAA in patients over 70 years has not been determined. Clinical correlation is essential. Serum or plasma urea nitroge n measurement (mass/volume)Ordered By: Mary Lou Hamilton on 03-01-2024 Urea nitrogen [Mass/Vol] 18 mg/dL 7-18 [facility] Sodium levelOrdered By: Heber kateryna Alfonso on 03-01-2024 Sodium [Moles/Vol] 142 mmol/L 136-145 [facility] No Panel Informationon 10-17 CA 125 Antigen 15.4 U/mL 0.0-38.1 [facility] Work Phone: Comment on above: [facility] El ectrochemiluminescence Immunoassay(ECLIA)Values obtained with different assay methods or kits cannotbe used interchangeably. Results cannot be interpreted asabsolute evidence of the presence or absence of malignantdisease.Performed at: [address] [id number] Director: Pool Sousa PhD, Phone: [phone] Absolute lymphocyte counton 08-11-2021 Lymphocytes Auto (Unsp spec) [#/Vol] 1.63 10*3/uL 0.83-4.51 [facility] Work Phone: Basophil percentageon 2021 Basophils/100 WBC (Bld) 0.7 % 0-1 [facility] Work Phone: Bilirubin [Mass/Vol] 0.60 mg/dL 0.20-1.00 [facility] Work Phone: Comment on above: For patients on eltr ombopag therapy, use of Dimension Roxie TBIL is not recommended. Chloride [Moles/Vol] 111 mmol/L 98-107 [facility] Work Phone: Cholesterol [Mass/Vol] 174 mg/dL <200 [facility] Work Phone: Comment on above: <200 mg/dL Desirable 200-240 mg/dL Borderline >240 mg/dL High Risk Eosinophils/100 WBC (Bld) 2.8 % 0-5 [facility] Work Phone: Glucose [Mass/Vol] 86 mg/dL 74-106 [facility] Work Phone: Neutrophils (Bld) [#/Vol] 3.7 10*3/uL 2.0-7.7 [facility] Work Phone: Neutrophils/100 WBC (Bld) 61.9 % 47-70 [facility] Work Phone: Potassium [Moles/Vol] 4.6 mmol/L 3.5-5.1 [facility] Work Phone: Protein [Mass/Vol] 7.5 g/dL 6.4-8.2 [facility] Work Phone: Sodium [Moles/Vol] 143 mmol/L 136-145 [facility] Work Phone: Triglyceride [Mass/Vol] 119 mg/dL <199 [facility] Work Phone: [phone] Comment on above: The drugs N-Acetylcy steine and Metamizole may falsely depress this assay.Serum Triglycerides Reference Interval Normal <150 mg/dL Borderline high 150 - 199 mg/dL High 200 - 499 mg/dL Very High > or = 500 mg/dL WBC (Bld) [#/Vol] 6.0 10*3/uL 4.4-11.0 [facility] Work Phone: Blood erythrocytes count (nu mber/volume)on 08-11-2021 RBC (Bld) [#/Vol] 4.49 10*6/uL 4.2-5.4 [facility] Work Phone: Blood hemoglobin measurement (mass/volume)on 08-11-2021 Hemoglobin (Bld) [Mass/Vol] 14.2 g/dL 12.0-15.0 [facility] Work Phone: Blood lymphocytes/100 leukoc yteson 08-11-2021 Lymphocytes/100 WBC (Bld) 27.1 % 19-41 [facility] Work Phone: Blood monocytes/100 leukocyt eson 08-11-2021 Monocytes/100 WBC (Bld) 7.2 % 0-10 [facility] Work Phone: Blood platelet mean volumeon 08-11-2021 Platelet mean volume (Bld) [Entitic vol] 9.2 fL 6.2-12.0 [facility] Work Phone: Determination of erythrocyte mean corpuscular volume (MCV)on 08-11-2021 MCV (RBC) [Entitic vol] 95.1 fL 81-99 [facility] Work Phone: Hematocrit Auto (Bld) [Volum e fraction]on 08-11-2021 Hematocrit (Bld) [Volume fraction] 42.7 % 37-47 [facility] Work Phone: Laboratory - Chemistry and C hemistry - challengeon 08-11-2021 ALP [Catalytic activity/Vol] 89 U/L 45-117 [facility] Work Phone: ALT [Catalytic activity/Vol] 23 U/L 13-56 [facility] Work Phone: CO2 [Moles/Vol] 27.0 mmol/L 21.0-32.0 [facility] Work Phone: Globulin (S) [Mass/Vol] 3.8 g/dL 2.2-4.2 [facility] Work Phone: Urea nitrogen/Creatinine [Mass ratio] 24.1 mg/mg 10-20 [facility] Work Phone: Laboratory - Hematology and Cell countson 08-11-2021 Erythrocyte distribution width (RBC) [Entitic vol] 41.1 fL 35.1-43.9 [facility] Work Phone: Erythrocyte distribution width (RBC) [Ratio] 11.8 % 11.6-14.6 [facility] Work Phone: Immature granulocytes/100 WBC (Bld) 0.300 % 0.0-0.9 [facility] Work Phone: Comment on above: IG% - Immature Granu locytes (promyelocytes, myelocytes and metamyelocytes) > 1% indicates that a LEFT SHIFT is Present. MCH (RBC) [Entitic mass] 31.6 pg 27.0-32.0 [facility] Work Phone: Nucleated RBC/100 WBC (Bld) [Ratio] 0 % 0-5 [facility] Work Phone: MCHC Auto (RBC) [Mass/Vol]on 08-11-2021 MCHC (RBC) [Mass/Vol] 33.3 g/dL 32-36 [facility] Work Phone: No Panel Informationon 08-11 Estimated GFR (MDRD) Amer 78 mL/min >60 [facility] Work Phone: Comment on above: GFR Calc Estimated GFR (MDRD) Non-Af Amer 65 mL/min >60 [facility] Work Phone: Comment on above: Non- GFR Calc Platelets bldon 08-11-2021 Platelets (Bld) [#/Vol] 265 10*3/uL 150-450 [facility] Work Phone: Serum or plasma albumin kana urement (mass/volume)on 08-11-2021 Albumin [Mass/Vol] 3.7 g/dL 3.2-5.0 [facility] Work Phone: Serum or plasma albumin/glob ulin mass ratioon 08-11-2021 Albumin/Globulin [Mass ratio] 1.0 {ratio} 0.9-2.4 [facility] Work Phone: Serum or plasma calcium kana urement (mass/volume)on 08-11-2021 Calcium [Mass/Vol] 9.2 mg/dL 8.5-10.1 [facility] Work Phone: Serum or plasma cholesterol in HDL measurement (mass/volume)on 08-11-2021 Cholesterol in HDL [Mass/Vol] 46 mg/dL >40 [facility] Work Phone: Comment on above: The drugs N-Acetylcy steine and Metamizole may falsely depress this assay. Reference Range HDL <40 mg/dL Low HDL Cholesterol HDL >or= 60 mg/dL High HDL Cholesterol Serum or plasma cholesterol in VLDL measurement (mass/volume)on 08-11-2021 Cholesterol in VLDL [Mass/Vol] 24 mg/dL 5-40 [facility] Work Phone: Serum or plasma creatinine m easurement (mass/volume)on 08-11-2021 Creatinine [Mass/Vol] 0.91 mg/dL 0.55-1.02 [facility] Work Phone: Comment on above: The validity of the calculated GFR & GFRAA in patients over 70 years has not been determined. Clinical correlation is essential. Serum or plasma low density lipoprotein (LDL) cholesterol measurement (mass/volume)on 08-11-2021 Cholesterol in LDL [Mass/Vol] 104 mg/dL 0-130 [facility] Work Phone: Serum or plasma urea nitroge n measurement (mass/volume)on 08-11-2021 Urea nitrogen [Mass/Vol] 22 mg/dL 7-18 [facility] Work Phone: Thin prep Papanicolaou smear with manual screeningon 08-11-2021 Thin prep Papanicolaou smear with manual screening 21 U/L 15-37 [facility] Work Phone: Thin prep Papanicolaou smear with manual screening 5 5-15 [facility] Work Phone: Otheron 08-14-2010 CONVERTED CLINICAL HISTORY OPERATIVE PROCEDURE: None given CLINICAL INFORMATION: None given [facility] CONVERTED ELECTRONIC SIGNATURE BABS STONE M.D. (Electronic signature on file) Final Signed Out: 08/14/2010 15:25 [facility] CONVERTED FINAL DIAGNOSIS FINAL DIAGNOSIS: A) VAGINAL CYST WALL - SQUAMOUS INCLUSION CYST. B) VAGINAL TISSUE - SQUAMOUS MUCOSA WITH ASSOCIATED SQUAMOUS INCLUSION CYST. SPECIMEN: (A) PELVIS (B) VAGINA [facility] CONVERTED GROSS DESCRIPTION GROSS DESCRIPTION: A. Tissue cyst wall Container A is labeled cyst wall. Received are two portions of thin membranous pink-terrell tissue measuring 4 x 3 x 0.6 cm. One surface is smooth while the other is slightly shaggy, reddish-medellin. Specimen is sectioned and a field support representative sample is submitted in a single cassette labeled A. B. Tissue vaginal lining Container B labeled vaginal lining. Received are portions of wrinkled, rubbery, terrell-pink tissue measuring 4 x 4 x 2 cm in aggregate. One surface is smooth, while the other is slightly shaggy. The specimen is sectioned and a field support representative sample submitted in a single cassette labeled B. SMS:[facility] MICROSCOPIC DESCRIPTION: Slides reviewed. EAC/lrs [facility] CONVERTED ORDERING PROVIDER Ordering Provider: DENNY GUADALUPE [facility] Othertavia 09-06-2009 Converted Case Data Done By: ISHMAEL HENRIQUEZ M.D., PATHOLOGIST [facility] CONVERTED CLINICAL HISTORY OPERATIVE PROCEDURE: Exploratory staging laparotomy, cyto washings, removal of large pelvic mass, total abdominal hysterectomy, bilateral salpingo-oophorectomy, tumor reductive surgery, possible cystocele, rectocele, enterocele repairs, possible vaginal vault suspension CLINICAL INFORMATION: Complex pelvic mass, uterine prolapse, post menopausal bleeding [facility] CONVERTED ELECTRONIC SIGNATURE ISHMAEL FERGUSON M.D., PATHOLOGIST (Electronic signature on file) Final Signed Out: 09/06/2009 08:40 [facility] CONVERTED FINAL DIAGNOSIS FINAL DIAGNOSIS: A) OVARY [...] OVARY (F) LYMPH NODE (G) LYMPH NODE [facility] CONVERTED GROSS DESCRIPTION GROSS DESCRIPTION: A. Right [...] papillary excrescence measuring 12 x 8 cm. [employer] sample of the ovary submitted for frozen section. [employer] sample of the ovary/cyst submitted in cassettes [...] omentum reveal no discrete or suspicious lesion. [employer] sample submitted in four cassettes labeled D. [...] is sectioned and submitted in cassette G. SMS:EDS:alicia MICROSCOPIC DESCRIPTION: Slides reviewed. 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 EDS [facility] CONVERTED ORDERING PROVIDER Ordering Provider: ISHMAEL NAQVI [facility] Otheron 09-05-2009 CONVERTED CLINICAL HISTORY CLINICAL INFORMATION [facility] CONVERTED ELECTRONIC SIGNATURE BABS STONE M.D. (Electronic signature on file) Final Signed Out: 09/05/2009 14:49 [facility] CONVERTED FINAL DIAGNOSIS DIAGNOSIS RIGHT SUB-DIAPHRAGMATIC SCRAPING - NO MALIGNANT CELLS IDENTIFIED. REACTIVE MESOTHELIAL CELLS. [facility] CONVERTED GROSS DESCRIPTION SPECIMEN: A) SDC, SUB-DIAPHRAGM SCRAPINGS [place] diaphragmatic scraping,right Description: Materials Prepared & Examined: Other: ............. 1 slide received. # of Smear slides: ......... 1 # of Slides: ................. 1 [facility] CONVERTED ORDERING PROVIDER Ordering Provider: ISHMAEL NAQVI [facility] CONVERTED PROCEDURE PROCEDURE: [facility] CONVERTED CLINICAL HISTORY CLINICAL INFORMATION [facility] CONVERTED ELECTRONIC SIGNATURE BABS STONE M.D. (Electronic signature on file) Final Signed Out: 09/05/2009 14:48 [facility] CONVERTED FINAL DIAGNOSIS DIAGNOSIS LEFT SUB-DIAPHRAGMATIC SCRAPING - NO MALIGNANT CELLS IDENTIFIED. REACTIVE MESOTHELIAL CELLS. [facility] CONVERTED GROSS DESCRIPTION SPECIMEN: A) SDC, SUB-DIAPHRAGM SCRAPINGS [place]-diaphragmatic scraping , left. Description: Materials Prepared & Examined: Other: ............. 1 slide recived. # of Smear slides: ......... 1 # of Slides: ................. 1 [facility] ORDERING PROVIDER Ordering Provider: ISHMAEL NAQVI [facility] CONVERTED PROCEDURE PROCEDURE: [facility] Otheron 09-04-2009 CONVERTED CLINICAL HISTORY CLINICAL INFORMATION [facility] CONVERTED ELECTRONIC SIGNATURE ISHMAEL FERGUSON M.D., PATHOLOGIST (Electronic signature on file) Final Signed Out: 09/04/2009 11:56 [facility] CONVERTED FINAL DIAGNOSIS DIAGNOSIS PELVIC WASHING - NO MALIGNANT CELLS IDENTIFIED. REACTIVE MESOTHELIAL CELLS. [facility] CONVERTED GROSS DESCRIPTION SPECIMEN: A) PEC, PELVIC WASHING W/CELL BLOCK Peritoneal washing. Description: Materials Prepared & Examined: Volume: ......... 50 # of Cell Blocks: .......... 1 Color: ............ Red # of Monolayers: .......... 1 Consistency: ...... clotted # of Smear slides: ......... 1 # of Slides: ................. 4 [facility] CONVERTED ORDERING PROVIDER Ordering Provider: ISHMAEL NAQVI [facility] CONVERTED PROCEDURE PROCEDURE: [facility] Culture, urine Bacteria identified Cx Nom (U) Culture exhibits no growth. [facility] Work Phone: Vital Signs Date Time Vital Sign Value Performing Clinician Neela khoury 04-24-2024 10:09-0500 Body height 160.[address] Mary Lou Hamilton MD Work Phone: [facility] 04-24-2024 10:07-0500 Body mass index (BMI) [Ratio] 34.2 kg/m2 Dr. Mary Lou Hamilton MD Work Phone: [facility] 04-24-2024 10:07-0500 Body weight 87.[address] Mary Lou Hamilton MD Work Phone: [facility] 04-24-2024 10:07-0500 Diastolic blood pressure 78 mm[Hg] Dr. Mary Lou Hamilton MD Work Phone: [facility] 04-24-2024 10:07-0500 Systolic blood pressure 132 mm[Hg] Dr. Mary Lou Hamilton MD Work Phone: [facility] 08-11-2021 09:41-0400 Body height 160.[address] Mary Lou Hamilton Work Phone: [facility] Work Phone: 08-11-2021 09:41-0400 Body mass index (BMI) [Ratio] 38.5 kg/m2 Dr. Mary Lou Hamilton Work Phone: [facility] Work Phone: 08-11-2021 09:41-0400 Body temperature 97 [degF] Dr. Mary Lou Hamilton Work Phone: [facility] Work Phone: 08-11-2021 09:41-0400 Body weight 98.[address] MaryL ou Hamilton Work Phone: [facility] Work Phone: 08-11-2021 09:41-0400 Diastolic blood pressure 64 mm[Hg] Dr. Mary Lou Hamilton Work Phone: [facility] Work Phone: 08-11-2021 09:41-0400 Heart rate 84 /min Dr. Mary Lou Hamilton Work Phone: [facility] Work Phone: 08-11-2021 09:41-0400 Respiratory rate 18 /min Dr. Mary Lou Hamilton Work Phone: [facility] Work Phone: 08-11-2021 09:41-0400 SaO2% (BldA) [Mass fraction] 98 % Dr. Mary Lou Hamilton Work Phone: [facility] Work Phone: 08-11-2021 09:41-0400 Systolic blood pressure 118 mm[Hg] Dr. Mary Lou Hamilton Work Phone: [facility] Work Phone: Encounters Encounter Date Encounter Type Care Provider Facility Start: 01-15-2025 ambulatory Mary Lou De La Torrei ty:[facility] Start: 12-27-2024 ambulatory Mary Lou Hamilton Facili ty:[facility] Start: 12-27-2024 End: 12-27-2024 ambulatory Mary Lou Hamilton Facility:[facility] Start: 04-25-2024 End: 04-25-[address] Mary Lou Hamilton MD Work Phone: [facility] Work Phone: Start: 04-25-2024 End: 04-25-2024 Patient encounter procedure Skylar MORRIS -Laboratory Work Phone: Start: 04-24-2024 End: 04-25-[address] Mary Lou Hamilton MD Work Phone: [facility] Work Phone: Start: 04-24-2024 End: 04-24-2024 Patient encounter procedure Skylar MORRIS -Laboratory, Specimen Work Phone: Start: 04-24-2024 End: 04-24-2024 Patient encounter procedure Skylar MORRIS -[facility] Start: 04-24-2024 End: 04-24-2024 Patient encounter status Skylar Wilkes [employer]-C [facility] Start: 04-24-2024 End: 04-24-[facility] Start: 04-24-2024 End: 04-24-2024 ambulatory Skylar Wilkes Facility:[facility] Start: 03-01-2024 End: 03-01-[address] Mary Lou Hamilton MD -Laboratory, [place] Start: 03-01-2024 End: 03-01-2024 ambulatory Mary Lou Hamilton Facility:[facility] Start: 10-22-2021 End: 10-22-[address] Mary Lou Hamilton Work Phone: [facility] Work Phone: Start: 10-22-2021 End: 10-22-[address] Mary Lou Hamilton Work Phone: [facility]-Outpatient Breast Imaging Start: 10-17-2021 End: 10-17-[address] Mary Lou Hamilton Work Phone: [facility] Work Phone: Start: 10-17-2021 End: 10-17-[address] 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 Mary Lou Hamilton Work Phone: [facility]-Outpatient Bone Densitometry Start: 08-11-[address] Mary Lou Hamilton Work Phone: [facility] Start: 08-11-2021 End: 08-11-2021 Encounter for general adult medical examination without abnormal findings Dr. Mary Lou Hamilton Work Phone: [facility] Start: 08-11-2021 End: 08-11-[address] Mary Lou Hamilton Work Phone: [facility] Start: 08-11-2010 End: 08-11-2010 Patient encounter procedure Denny Guadalupe Work Phone: [facility] Start: 08-11-2010 Results Only Denny hamlin Work Phone: [facility] Start: 09-03-2009 End: 09-03-2009 Patient encounter procedure Ishmael Naqvi Work Phone: [facility] Start: 09-03-2009 Results Only Ishmael Ledesma on Work Phone: [facility] Procedures Date Procedure Procedure Detail Performing Clinician Start: 10-22-[address] Mary Lou hopper Work Phone: Start: 09-10-2021 Dual energy X-ray absorptiometry Dr. 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 Mary Lou Hamilton Work Phone: Urine culture Dr. Mary Lou Hamilton Work Phone: Plan of Treatment Date Care Activity Detail Author DXA Bone [Mass/Area] Bone density [facility] Work Phone: Immunizations Immunization Date Immunization Notes Care Provider [facility] 11-29-2023 Seasonal trivalent influenza vaccine, adjuvanted, preservative free Dr. Mary Lou Hamilton MD Work Phone: [facility] 11-23-2022 influenza, injectabl e, quadrivalent, preservative free Dr. Mary Lou Hamilton MD Work Phone: [facility] 02-10-2022 Covid Moderncali Bivale nt Booster Dr. Mary Lou Hamilton MD Work Phone: [facility] 01-08-2022 Influenza High-Dose Quadrivalent Dr. Mary Lou Hamilton MD Work Phone: [facility] 01-23-2021 Covdanielle (Moderna) Dr. Jonh Hamilton MD Work Phone: [facility] 12-05-2020 influenza, high dose seasonal, preservative-free Dr. Mary Lou Hamilton MD Work Phone: [facility] 03-27-2020 [facility] (Moderna) Dr. Jonh Hamilton MD Work Phone: [facility] 03-01-2020 Roxane (Moderna) Dr. Jonh Hamilton MD Work Phone: [facility] 12-05-2019 influenza, high dose seasonal, preservative-free Dr. Mary Lou Hamilton MD Work Phone: [facility] 12-07-2018 influenza, high dose seasonal, preservative-free Dr. Mary Lou Hamilton MD Work Phone: [facility] 01-24-2018 influenza, high dose seasonal, preservative-free Dr. Mary Lou Hamilton MD Work Phone: [facility] 01-24-2018 pneumococcal polysaccharide vaccine, [address] Mary Lou Hamilton MD Work Phone: [facility] 12-21-2016 influenza, high dose seasonal, preservative-free Dr. Mary Lou Hamilton MD Work Phone: [facility] 12-21-2016 pneumococcal conjuga te vaccine, [address] Mary Lou Hamilton MD Work Phone: [facility] 01-10-2015 influenza, injectabl e, quadrivalent, preservative free Dr. Mary Lou Hamilton MD Work Phone: [facility] Payers Date Payer Category Payer Self-pay [id number] 2024 Medicare [id number] Unknown [id number] Unknown [id number] [id number] Unknown [id number] [id number] Unknown [id number] [id number] Unknown [id number] [id number] [id number] Unknown [id number] 2.16.8 [id number] Unknown [id number] 2.16.8 [id number] Unknown [id number] 2.16.8 [id number] Social History Date Type Detail Facility [facility] Sex Assigned At Not on [facility] Start: 08-11-2021 [facility] if ever smoked [facility] Work Phone: Start: 1950 Sex Assigned At Female [facility] Start: 04-24-2024 [facility] Never [facility] (finding) [facility] Start: 05-05-2024 End: 05-05-2024 Sex Female (finding) [facility] Medical Equipment Procedure Code Equipment Code Equipment Original Text Equipment Identifier Dates Total cholecystectomy with exploration of common bile duct Ligation clip, synthetic polymer, non-bioabsorbable [id number] FDA Start: 03-21-2021 Total cholecystectomy with exploration of common bile duct Ligation clip, synthetic polymer, non-bioabsorbable [id number] [facility] Start: 03-21-2021 Clinical Note 04-24-2024 Note Date & Type Note Facility 04-24-2024 Note [facility] Pap Smear Specimen Adequacy April 24, 2024 5:07pm Comment . Satisfactory for evaluation. No endocervical cells are present. This isconsistent with a history of hysterectomy. Comment on above: Satisfactory for marian luation. No endocervical cells are present. This isconsistent with a history of hysterectomy. Clinical Note 04-24-2024 Note Date & Type Note Facility 04-24-2024 Note [facility] Pap Smear Specimen Adequacy April 24, 2024 5:07pm Comment . Satisfactory for evaluation. No endocervical cells are present. This isconsistent with a history of hysterectomy. Comment on above: Satisfactory for marian luation. No endocervical cells are present. This isconsistent with a history of hysterectomy. Evaluation note 04-24-2024 Note Date & Type Note Facility 04-24-2024 Evaluation note Diagnosis Onset Date Resolution Endometrial cancer, grade I acute April 24, 2024 9:54am Encounter for routine gynecological examination noneactive April 24, 2024 9:54am [facility] Work Phone: Evaluation note Note Date & Type Note Facility Evaluation note Diagnosis Onset Date Health care maintenance acut e S/P laparoscopic cholecystectomy acute Hyperlipidemia chronic [facility] Work Phone: Reason for referral (narrative) Note Date & Type Note Facility Reason for referral (narrative) No reason for referral information available [facility] Work Phone: Chief Complaint and Reason for Visit Chief Complaint FU Reason for Visit Health care maintena nce S/P laparoscopic cholecystectomy Hyperlipidemia Chief Complaint FU POST ELVIA Reason for Visit Health care maintena nce S/P laparoscopic cholecystectomy Hyperlipidemia Chief Complaint FU POST [place]VIA LABWORK SCREENING Reason for Visit Health care maintena nce S/P laparoscopic cholecystectomy Hyperlipidemia Chief Complaint Admit Date 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) April 24, 2024 9:54 am INT LAB ORDERS April 25, 2024 10:4 5am Reason for Visit Admit Date Endometrial cancer, grade I April 24 9:54am Encounter for routine gynecological exam ination April 24, 2024 9:54am Family History No Family History Records Found Relationship Condition Age at Onset Recorded Date/T osmani father Malignant neoplasm Unknown mother Diabetes mellitus Unknown Arthritis Unknown Cerebrovascular accident (CVA) Unknown Advance Directives No Advanced Directives Records Found Advance Directive Response Recorded Date/ Time Living Will Yes March 20 11:25am Power of Rn Staff Yes March 20, 2021 11:25am Summary Purpose Additional Source Comments Source Comments (unrecognize d section and content) In the event this informatio n is protected by the Federal Confidentiality of Alcohol and Drug Abuse Patient Records regulations: The Federal rules restrict any use of the information to criminally investigate or prosecute any alcohol or drug abuse patient.[facility] Goals (unrecognized section and content) Goals may be documented in a n alternate sectionGoals may be documented in an alternate sectionGoals may be documented in an alternate sectionGoals may be documented in an alternate sectionGoals may be documented in an alternate sectionGoals may be documented in an alternate section Care Teams (unrecognized sec tion and content) Team Status: Active Member Role Status Dates No Primary Care Physician Family Provider Active Dr. Mary Lou Hamilton MD Primary Care Provider Active Team Status: Inactive Member Role Status Dates Dr. Mary Lou Hamilton MD Primary Care Provider Active Start: March 01, 2024 End: March 01, 2024 Dr. Mary Lou Hamilton MD Attending Provider Active Start: March 01, 2024 End: March 01, 2024 Dr. Mary Lou Hamilton MD Referring Provider Active Start: March 01, 2024 End: March 01, 2024 Team Status: Inactive Member Role Status Dates Dr. Mary Lou Hamilton MD Primary Care Provider Active Start: April 24, 2024 End: April 24, 2024 Dr. Mary Lou Hamilton MD Referring Provider Active Start: April 24, 2024 End: April 24, 2024 ARTURO Pereyra Attending Provider Active Start: April 24, 2024 End: April 24, 2024 Team Status: Inactive Member Role Status Dates Dr. Mary Lou Hamilton MD Primary Care Provider Active Start: April 24, 2024 End: April 24, 2024 ARTURO Pereyra Attending Provider Active Start: April 24, 2024 End: April 24, 2024 Team Status: Active Member Role Status Dates Dr. Mary Lou Hamilton MD Primary Care Provider Active Start: April 25, 2024 ARTURO Pereyra Attending Provider Active Start: April 25, 2024 ARTURO Pereyra Referring Provider Active Start: April 25, 2024 Team Status: Inactive Member Role Status Dates Dr. Mary Lou Hamilton MD Primary Care Provider Active Start: April 25, 2024 End: April 25, 2024 ARTURO Pereyra Attending Provider Active Start: April 25, 2024 End: April 25, 2024 ARTURO Pereyra Referring Provider Active Start: April 25, 2024 End: April 25, 2024 INFORMATION SOURCE (unrecogn ized section and content) DATE CREATED AUTHOR 12/31/2024 [facility] FOR RECORDS PERTAINING TO PATIENTS WHO ARE [...] BE BASED ON THE PRIMARY CLINICAL RECORDS. [employer] provides no warranty or guarantee of the accuracy or completeness of information in this document.
== END | disposition home or self-care (01) ==
LOC: CVS 07:45
PROVIDERS: PCP Internal Medicine; Referring Provider Internal Medicine; Visit Provider Internal Medicine
DX: R01.1 Cardiac murmur, unspecified (principal)
CPT/HCPCS: 93306